=== PATIENT | female | born 1950 | race Caucasian/White ===

== ENCOUNTER 2017-07-22 08:50 | Observation (INO) | payer MEDICARE, SELFPAY ==
[2017-07-22 08:59] VITALS: BP 83/36; PULSE 88; RESP 16; O2SAT 98; BMI 19.5
[2017-07-22 09:12] LABS: Adenovirus F 40/41, stool Not Detected (NotDetected); Astrovirus Not Detected (NotDetected); Campylobacter Not Detected (NotDetected); Cryptosporidium Not Detected (NotDetected); Cyclospora Cayetanesis Not Detected (NotDetected); Entamoeba histolytica Not Detected (NotDetected); Enteroaggregative E coli Not Detected (NotDetected); Enteropathogenic E coli Not Detected (NotDetected); Enterotoxigenic E coli Not Detected (NotDetected); Giardia lamblia Not Detected (NotDetected); Norovirus Not Detected (NotDetected); Plesimonas Shigalloides, PCR Not Detected (NotDetected); Rotavirus A Not Detected (NotDetected); Salmonella, PCR Not Detected (NotDetected); Sapovirus Not Detected (NotDetected); Shiga-like toxin E coli Not Detected (NotDetected); Shigella Enterovasive E coli Not Detected (NotDetected); Vibrio Cholerae Not Detected (NotDetected); Vibrio, PCR Not Detected (NotDetected); Yersinia Entercolitica, PCR Not Detected (NotDetected)
[2017-07-22 09:28] LABS: Basophils % 0.2 % (0.1-2.0); Eosinophils % 0.4 % (0.1-12.0); Hematocrit 35.3 % (37.0-47.0); Hemoglobin 11.6 g/dL (12.2-16.2); Lymphocytes # 1.3 K/mm3 (0.7-4.5); Lymphocytes % 15.2 K/mm3 (10-50); Mean Corpuscular HGB Conc 32.8 g/dL (31.8-35.4); Mean Corpuscular Hemoglobin 30.4 pg (27.0-31.2); Mean Corpuscular Volume 92.5 fl (81-99); Mean Platelet Volume 7.8 fl (7.4-10.4); Monocytes # 0.9 K/mm3 (0.1-1.0); Monocytes % 11.2 % (1.7-9.3); Neutrophils # 6.1 K/mm3 (1.8-7.8); Platelet Count 285 K/mm3 (142-424); Red Blood Count 3.82 M/mm3 (4.20-5.40); Red Cell Distribution Width 12.6 % (11.5-17.5); White Blood Count 8.3 K/mm3 (4.8-10.8)
[2017-07-22 10:11] LABS: Lipase 111 u/L (73-393)
[2017-07-22 10:14] LABS: Alanine Aminotransferase 27 U/L (12-78); Albumin Level 2.8 gm/dL (3.4-5.0); Albumin/Globulin Ratio 0.9 (1.1-1.8); Alkaline Phosphatase 213 U/L (46-116); Amylase 29 U/L (25-125); Aspartate Amino Transferase 264 U/L (15-37); Bilirubin,Total 1.9 mg/dL (0.2-1.0); Blood Urea Nitrogen 29 mg/dL (7-18); Calcium 8.7 mg/dL (8.5-10.1); Carbon Dioxide 26 mmol/L (21.0-32.0); Chloride 106 mmol/L (98-107); Creatinine Clearance Estimated 40 mL/min (0-300); Creatinine,Serum 0.82 mg/dL (0.55-1.02); Estimated Glomerular Filt Rate 70 ml/min (>60); GFR (African American) 84 ML/MIN (>60); Globulin 3.2 gm/dl (1.3-3.2); Glucose 138 mg/dL (74-106); Sodium 139 mmol/L (136-145)
[2017-07-22 11:03] LABS: Clostridium Difficile A/B, PCR Detected (NotDetected)
--- NOTE | 2017-07-22 11:08 | HMH.EDNVD ---
ED Disposition Clinical Impression: Pseudomembranous colitis, Dehydration Hypotension Qualifiers: Hypotension type: unspecified hypotension type Qualified Code(s): I95.9 - Hypotension, unspecified Disposition: Admitted As Inpatient Condition on Discharge: Good Time of Disposition: 11:09 - Critical Care Critical Care Time: No Attestation: On 07/22/17, the high probability of a clinically significant, sudden or life threatening deterioration of the following system(s) required my full and direct attention, intervention and personal management. The time I documented below is in addition to time spent performing reported procedures but includes the following listed in this critical care notation. Medical Decision Making - Medical Records Medical records reviewed: Yes: I reviewed the patient's medical records. - Juan Inquiry Pt receiving controlled substance: No Vital Signs: 07/22/17 08:59 Pulse Rate [Right Brachial] 88 Respiratory Rate 16 Blood Pressure [Right Arm] 83/36 Blood Pressure Mean [Right Arm] 51 Blood Pressure Source [Right Arm] Automatic Cuff Blood Pressure Position [Right Arm] Sitting 02 Sat by Pulse Oximetry 98 Oxygen Delivery Method Room Air - Lab Data Lab results reviewed: Yes: I reviewed the patient's lab results. Lab Results 07/22/17 08:50: Stl Aeromonas (PCR) Not detected, Stl C. cayetanensis PCR Not detected, Stool Rotavirus (PCR) Not detected, Stl Adenov F 40/41 PCR Not detected, Stool Astrovirus (PCR) Not detected, Stool Campylobacter PCR Not detected, Stl C.difficile Tox PCR Detected A, Stool Cryptosporidium PCR Not detected, Stl E.coli Shiga Tox PCR Not detected, Stool E coli O157 PCR Not detected, Stl Enterotoxigenic E PCR Not detected, Stool EPEC (PCR) Not detected, Stool EAEC (PCR) Not detected, Stl E. histolytica PCR Not detected, Stool Giardia Lamblia PCR Not detected, Stool Salmonella PCR Not detected, Stool Sapovirus (PCR) Not detected, Stl P. shigelloides PCR Not detected, Stl Shigella/EIEC PCR Not detected, St Y.enterocolitica PCR Not detected, Stool Vibrio (PCR) Not detected, Stl Vibrio cholerae PCR Not detected, Stl Norovirus GI/GII PCR Not detected 07/22/17 09:40: Sodium 139, Potassium 4.0, Chloride 106, Carbon Dioxide 26, Anion Gap 11.0, BUN 29 H, Creatinine 0.82, Estimated Creat Clear 40, Estimated GFR 70, Est GFR ( Amer) 84, Glucose 138 H, Calcium 8.7, Total Bilirubin 1.9 H, AST 264 H, ALT 27, Alkaline Phosphatase 213 H, Total Protein 6.0 L, Albumin 2.8 L, Globulin 3.2, Albumin/Globulin Ratio 0.9 L, Amylase 29 07/22/17 09:40: Lipase 111 07/22/17 : WBC 8.3, RBC 3.82 L, Hgb 11.6 L, Hct 35.3 L, MCV 92.5, MCH 30.4, MCHC 32.8, RDW 12.6, Plt Count 285, MPV 7.8, Neut % (Auto) 73.0, Lymph % (Auto) 15.2, [place] % (Auto) 11.2 H, Eos % (Auto) 0.4, Baso % (Auto) 0.2, Neut # (Auto) 6.1, Lymph # (Auto) 1.3, [place] # (Auto) 0.9, Eos # (Auto) 0.0, Baso # (Auto) 0.0 Result diagrams: 07/22/17 Unknown 07/22/17 09:40 Orders (Tests/Meds): ED MEDICATIONS Generic Name Dose Route Start Last Admin Trade Name Freq PRN Reason Stop Dose Admin Metronidazole 100 mls @ 100 mls/hr 07/22/17 11:47 07/22/17 11:52 Flagyl 500mg/100ml Ivpb IV 07/22/17 12:46 100 mls/hr ONCE ONE Administration Protocol Discontinued Medications Generic Name Dose Route Start Last Admin Trade Name Freq PRN Reason Stop Dose Admin Sodium Chloride 1,000 mls @ 999 mls/hr 07/22/17 09:15 07/22/17 10:20 Sod Chlor 0.9% 1000ml Bag IV 07/22/17 10:15 999 mls/hr .Q1H1M YANA Administration Sodium Chloride 1,000 mls @ 999 mls/hr 07/22/17 09:15 07/22/17 11:51 Sod Chlor 0.9% 1000ml Bag IV 07/22/17 10:15 999 mls/hr .Q1H1M YANA Administration Metronidazole 500 mg 07/22/17 11:04 Metronidazole 500mg Tablet PO 07/22/17 11:05 ONCE ONE Protocol - Reevaluation(s) Time: 12:00 Reevaluation #1: Case d/w Dr Mcdaniel covering for DR Crum, advise of patient's present
[2017-07-22 12:23] VITALS: BP 113/64; PULSE 102; RESP 20; TEMP 36.4; O2SAT 98
--- NOTE | 2017-07-22 12:23 | PC.NURSE ---
report called to EFRAIN Piper on second floor at this time.
[2017-07-22 12:26] VITALS: BMI 21.1
--- NOTE | 2017-07-22 13:08 | HMH.HP ---
*Admission Date: 07/22/17 <Evelin Carlson 07/22/17 15:25> *Chief complaint: nausea/vomiting/diarrhea <Evelin Carlson 07/22/17 15:25> *History of present illness: Ms Odonnell is a 67-year-old female with a history of Parkinson's disease osteoporosis, diverticulosis,and lumbar compression fractures to presented to [facility] emergency room after experiencing diarrhea for greater than a week. Stools started as soft about 10 days ago and turned to liquid watery stools on 07/18/2017. She has several small stools per day and states her stomach feels like there is an there is a knot in it. She has not vomited but has been nauseated at times. Been retaining fluids. She denies any melena hematochezia or hematemesis. To note she had a deep brain stimulator placement on 06/01/2017 and has been on IV and p.o. antibiotics after this procedure. With evaluation in the emergency room she was felt to be dehydrated, had a low blood pressure, and stool was positive for clostridium difficile. She was admitted to the hospital for further evaluation and treatment. With this exam patient has been placed on IV Flagyl and IV fluids. She has continued to have diarrhea. She has been eating. Her stomach still feels like it has a knot in it. Blood pressure has improved <Evelin Carlson 07/22/17 15:25> [facility] History Medical History: Reports:: Osteoporosis Denies:: Atherosclerotic Heart Disease, Congestive Heart Failure, Chronic Obstructive Pulmonary Disease (COPD), Diabetes Mellitus Type 2, Gastroesophageal Reflux Disease(GERD) <Evelin Carlson 07/22/17 15:25> Comment: Parkinson's disease; osteoporosis; diverticulosis; tobacco addiction; lumbar compression fracture. <Evelin Carlson 07/22/17 15:25> Laterality Cases: Bilateral: Tonsillectomy <Evelin Carlson 07/22/17 15:25> Other Surgeries: Yes: Colonoscopy, Tubal Ligation <Evelin Carlson 07/22/17 15:25> Comment: 06/01/2017 placement of deep brain stimulator <Evelin Carlson 07/22/17 15:25> - *Social History Educational Level: Completed Graduate School <Evelin Carlson 07/22/17 15:25> Smoking Status: Former smoker <Evelni Carlson 07/22/17 15:25> Tobacco Type: cigarettes <Evelin Carlson 07/22/17 15:25> Alcohol Intake: never <Evelin Carlson 07/22/17 15:25> - Psychiatric History Expresses thoughts of harming self/others: None <Sheela Carlsonhy 07/22/17 15:25> Suicide Plan Description: No Plan <Evelin Carlson 07/22/17 15:25> *Family Hx:: Cancer, Diabetes, Hypertension <Evelin Carlson 07/22/17 15:25> Review of Systems - Constitutional Denies anorexia, Denies body ache(s), Denies fever(s), Denies headache(s) <Sheela Carlsonhy 07/22/17 15:25> - Eyes Denies change in vision <Sheela Carlsonhy 07/22/17 15:25> - ENT Denies ear pain, Denies sore throat <Sheela Carlsonhy 07/22/17 15:25> - *Cardiovascular Denies chest pain, Denies shortness of breath, Denies rapid, pounding, or irregular heartbeat, Denies fast heart rate <Sheela Carlsonhy 07/22/17 15:25> - *Respiratory Denies chest congestion, Denies cough, Denies shortness of breath <Sheela Carlsonhy 07/22/17 15:25> - *Gastrointestinal Reports abdominal pain, Reports change in bowel habits, Reports change in stools, Reports loose stools (Diarrhea), Reports nausea, Denies constipation, Denies cramping, Denies heartburn, Denies difficulty swallowing, Denies vomiting blood, Denies bright, red blood in stools, Denies black, tarry stools, Denies vomiting <Sheela Carlsonhy 07/22/17 15:25> - *Musculoskeletal Comments: Walks with a walker for stability <Sheela Carlsonhy 07/22/17 15:25> - *Neurologic Denies behavioral changes, Denies confusion, Denies headache(s) <Sheela Carlsonhy 07/22/17 15:25> Meds Home Medications Medication Instructions Recorded Confirmed Type Carbidopa/Levodopa [Carbidopa-Levo 1 each PO [facility] 07/22/17 07/22/17 History 25-100 mg Odt] Etodolac [Etodolac 400mg Tab] 400 mg PO BID 07/22/1707/22
[2017-07-22 13:26] VITALS: BP 126/80; PULSE 72; RESP 18; TEMP 36.6; O2SAT 99
[2017-07-22 13:49] VITALS: BP 107/59; PULSE 106; RESP 20; TEMP 36.7; O2SAT 96
--- NOTE | 2017-07-22 16:46 | PC.NURSE ---
SINCE ARRIVAL TO FLOOR PATIENT HAS DONE WELL. SHE HAS BEEN EDUCATED ON IMPORTANCE OF WASHING HANDS, AND CDIFF. HAS HAD SOME BMS ON FLOOR. NO COMPLAINTS OF PAIN. HAS RANG OUT NEEDED. ASSESSMENT WITHIN NORMAL LIMITS. VSS WILL CONTINUE TO MONITOR.
--- NOTE | 2017-07-22 19:17 | INFXCTL.NOTE ---
report given to marleny mcfadden
[2017-07-22 20:00] VITALS: BP 107/61; PULSE 101; RESP 20; TEMP 37.6; O2SAT 95
[2017-07-23 04:00] VITALS: BP 107/62; PULSE 78; RESP 18; TEMP 36.9; O2SAT 93
--- NOTE | 2017-07-23 04:26 | PC.NURSE ---
NO COMPLAINTS STATED. ABDOMEN NON DISTENDED, BOWEL SOUNDS HYPERACTIVE PER AUSCULTATION, ABDOMEN SOFT WITH MILD TENDERNESS NOTED PER PALPATION IN ALL QUADS. PT REPORTS LOOSE STOOLS X2. CONTACT PRECAUTIONS MAINTAINED T/O SHIFT. EDUCATION PROVIDED REGARDING PPE.
[2017-07-23 07:18] LABS: Basophils % 0.2 % (0.1-2.0); Eosinophils # 0.1 K/mm3 (0.0-0.4); Eosinophils % 1.1 % (0.1-12.0); Hematocrit 31.8 % (37.0-47.0); Lymphocytes # 1.2 K/mm3 (0.7-4.5); Mean Corpuscular HGB Conc 31.3 g/dL (31.8-35.4); Mean Corpuscular Volume 95.9 fl (81-99); Mean Platelet Volume 7.9 fl (7.4-10.4); Monocytes # 0.4 K/mm3 (0.1-1.0); Monocytes % 8.4 % (1.7-9.3); Neutrophils # 3.4 K/mm3 (1.8-7.8); Neutrophils % 67.2 % (37.0-80.0); Platelet Count 199 K/mm3 (142-424); Red Blood Count 3.31 M/mm3 (4.20-5.40); Red Cell Distribution Width 12.7 % (11.5-17.5)
[2017-07-23 07:19] LABS: Hemoglobin 9.9 g/dL (12.2-16.2)
--- NOTE | 2017-07-23 07:21 | HMH.PHAVTE ---
[facility] Pharmacy VTE Monitoring - Patient Demographics Admission date: 07/22/17 Report Date: 07/23/17 Time: 07:22 Allergies/Adverse Reactions: Patient Allergies cephalexin [From KEFLEX] Allergy (Unknown, Verified 07/22/17 09:03) STATES GIVES YEAST INFECTION Sulfa (Sulfonamide Antibiotics) [SULFA (SULFONAMIDE ANTIBIOTICS)] Allergy (Unknown, Verified 07/22/17 09:03) anxiety Height: 1.52 m Weight: 49.101 kg Patient Problems: Current Active Problems Pseudomembranous colitis (Acute) Dehydration (Acute) Hypotension (Acute) Parkinsons disease (Chronic) Osteoporosis (Chronic) - VTE Risk Labs: VTE Related Lab Results Hgb 9.9 g/dL (12.2-16.2) L D 07/23/17 06:30 Hct 31.8 % (37.0-47.0) L 07/23/17 06:30 Plt Count 199 K/mm3 (142-424) D 07/23/17 06:30 BUN 29 mg/dL (7-18) H 07/22/17 09:40 Creatinine 0.82 mg/dL (0.55-1.02) 07/22/17 09:40 Estimated Creat Clear 40 mL/min (0-300) 07/22/17 09:40 Was VTE Risk Assessment Performed: Yes VTE Score: 2 VTE Risk Level: Low Risk - Prophylaxis VTE Prophylaxis Ordered?: Yes Types of VTE Prophylaxis: TEDS Knee High Location of Applied Device: Bilateral Lower Extremeties - VTE Diagnosis Confirmed Treatment or plan recommended: Continue Current Treatment
[2017-07-23 07:23] LABS: Anion Gap 8.6 mEq/L (5-15); Blood Urea Nitrogen 17 mg/dL (7-18); Carbon Dioxide 25 mmol/L (21.0-32.0); Chloride 112 mmol/L (98-107); Creatinine Clearance Estimated 43 mL/min (0-300); Creatinine,Serum 0.66 mg/dL (0.55-1.02); Estimated Glomerular Filt Rate 90 ml/min (>60); GFR (African American) 108 ML/MIN (>60); Glucose 103 mg/dL (74-106); Potassium 3.6 mmoL/L (3.5-5.1); Sodium 142 mmol/L (136-145)
[2017-07-23 07:50] VITALS: BP 118/68; PULSE 99; RESP 20; TEMP 36.8; O2SAT 99
--- NOTE | 2017-07-23 08:19 | HMH.ACPN2 ---
<Twila Muhammad - Last Filed: 07/23/17 08:19> Internal Medicine - PN: Subj *Date: 07/23/17 *Time: 08:19 Interval history: Patient is still feeling weak today. She only had 3 diarrheal episodes during the night. She still has diffuse abdominal pain. Exam Vital signs and Labs for Last 24 Hours: Temp Pulse Resp BP Pulse Ox 98.2 F 99 H 20 118/68 99 07/23/17 07:50 07/23/17 07:50 07/23/17 07:50 07/23/17 07:50 07/23/17 07:50 Laboratory Results - last 24 hr 07/22/17 : WBC 8.3, RBC 3.82 L, Hgb 11.6 L, Hct 35.3 L, MCV 92.5, MCH 30.4, MCHC 32.8, RDW 12.6, Plt Count 285, MPV 7.8, Neut % (Auto) 73.0, Lymph % (Auto) 15.2, [place] % (Auto) 11.2 H, Eos % (Auto) 0.4, Baso % (Auto) 0.2, Neut # (Auto) 6.1, Lymph # (Auto) 1.3, [place] # (Auto) 0.9, Eos # (Auto) 0.0, Baso # (Auto) 0.0 07/23/17 06:30: WBC 5.0 D, RBC 3.31 L, Hgb 9.9 L D, Hct 31.8 L, MCV 95.9, MCH 30.0, MCHC 31.3 L, RDW 12.7, Plt Count 199 D, MPV 7.9, Neut % (Auto) 67.2, Lymph % (Auto) 23.0, [place] % (Auto) 8.4, Eos % (Auto) 1.1, Baso % (Auto) 0.2, Neut # (Auto) 3.4, Lymph # (Auto) 1.2, [place] # (Auto) 0.4, Eos # (Auto) 0.1, Baso # (Auto) 0.0 07/23/17 06:30: Sodium 142, Potassium 3.6, Chloride 112 H, Carbon Dioxide 25, Anion Gap 8.6, BUN 17 D, Creatinine 0.66, Estimated Creat Clear 43, Estimated GFR 90, Est GFR ( Amer) 108 D, Glucose 103 D I & O for Last 24 hours: Intake & Output 07/20/17 07/21/17 07/22/17 07/23/17 11:59 11:59 11:59 11:59 Intake Total 1944 / 2944 Output Total 200 / 200 Balance 1744 / 2744 Weight 108 lb 4 oz - Constitutional no acute distress - *Routine Respiratory Exam Present: CTA bilaterally - *Routine Cardiovascular Exam Present: RRR - *Routine Abdominal Exam Present: soft, normoactive bowel sounds, tenderness (diffuse) - *Routine Extremities Exam Absent: edema Assessment and Plan (1) Clostridium difficile colitis Current visit: Yes Status: Acute Category: Medical Code(s): A04.72 - Enterocolitis due to Clostridium difficile, not specified as recurrent (2) Pseudomembranous colitis Current visit: Yes Status: Acute Category: Medical Code(s): A04.72 - Enterocolitis due to Clostridium difficile, not specified as recurrent (3) Hypotension Current visit: Yes Status: Acute Qualifiers: Hypotension type: unspecified hypotension type Qualified Code(s): I95.9 - Hypotension, unspecified Category: Medical Code(s): I95.9 - Hypotension, unspecified (4) Dehydration Current visit: Yes Status: Acute Category: Medical Code(s): E86.0 - Dehydration (5) Parkinsons disease Current visit: Yes Status: Chronic Category: Medical Code(s): G20 - Parkinson's disease (6) Osteoporosis Current visit: Yes Status: Chronic Category: Medical Code(s): M81.0 - Age-related osteoporosis without current pathological fracture - Assessment and plan all Dx Assessment and Plan for all problems:: Will continue IVF hydration and switch to PO flagyl. Will recheck LFT's. <Mark Crum - Last Filed: 07/23/17 17:19> Internal Medicine - PN: Subj *Date: 07/23/17 *Time: 17:16 Exam Vital signs and Labs for Last 24 Hours: Temp Pulse Resp BP Pulse Ox 98.5 F 99 H 20 111/67 93 L 07/23/17 16:00 07/23/17 16:00 07/23/17 16:00 07/23/17 16:00 07/23/17 16:00 Laboratory Results - last 24 hr 07/23/17 06:30: WBC 5.0 D, RBC 3.31 L, Hgb 9.9 L D, Hct 31.8 L, MCV 95.9, MCH 30.0, MCHC 31.3 L, RDW 12.7, Plt Count 199 D, MPV 7.9, Neut % (Auto) 67.2, Lymph % (Auto) 23.0, [place] % (Auto) 8.4, Eos % (Auto) 1.1, Baso % (Auto) 0.2, Neut # (Auto) 3.4, Lymph # (Auto) 1.2, [place] # (Auto) 0.4, Eos # (Auto) 0.1, Baso # (Auto) 0.0 07/23/17 06:30: Sodium 142, Potassium 3.6, Chloride 112 H, Carbon Dioxide 25, Anion Gap 8.6, BUN 17 D, Creatinine 0.66, Estimated Creat Clear 43, Estimated GFR 90, Est GFR ( Amer) 108 D, Glucose 103 D 07/23/17 06:30: Total Bilirubin 0.9, Direct
--- NOTE | 2017-07-23 08:22 | P.PN_ITS ---
<Twila Muhammad - Last Filed: 07/23/17 08:19> Internal Medicine - PN: Subj *Date: 07/23/17 *Time: 08:19 Interval history: Patient is still feeling weak today. She only had 3 diarrheal episodes during the night. She still has diffuse abdominal pain. Exam Vital signs and Labs for Last 24 Hours: Temp Pulse Resp BP Pulse Ox 98.2 F 99 H 20 118/68 99 07/23/17 07:50 07/23/17 07:50 07/23/17 07:50 07/23/17 07:50 07/23/17 07:50 Laboratory Results - last 24 hr 07/22/17 : WBC 8.3, RBC 3.82 L, Hgb 11.6 L, Hct 35.3 L, MCV 92.5, MCH 30.4, MCHC 32.8, RDW 12.6, Plt Count 285, MPV 7.8, Neut % (Auto) 73.0, Lymph % (Auto) 15.2, [place] % (Auto) 11.2 H, Eos % (Auto) 0.4, Baso % (Auto) 0.2, Neut # (Auto) 6.1, Lymph # (Auto) 1.3, [place] # (Auto) 0.9, Eos # (Auto) 0.0, Baso # (Auto) 0.0 07/23/17 06:30: WBC 5.0 D, RBC 3.31 L, Hgb 9.9 L D, Hct 31.8 L, MCV 95.9, MCH 30.0, MCHC 31.3 L, RDW 12.7, Plt Count 199 D, MPV 7.9, Neut % (Auto) 67.2, Lymph % (Auto) 23.0, [place] % (Auto) 8.4, Eos % (Auto) 1.1, Baso % (Auto) 0.2, Neut # (Auto) 3.4, Lymph # (Auto) 1.2, [place] # (Auto) 0.4, Eos # (Auto) 0.1, Baso # (Auto) 0.0 07/23/17 06:30: Sodium 142, Potassium 3.6, Chloride 112 H, Carbon Dioxide 25, Anion Gap 8.6, BUN 17 D, Creatinine 0.66, Estimated Creat Clear 43, Estimated GFR 90, Est GFR ( Amer) 108 D, Glucose 103 D I & O for Last 24 hours: Intake & Output 07/20/17 07/21/17 07/22/17 07/23/17 11:59 11:59 11:59 11:59 Intake Total 1944 / 2944 Output Total 200 / 200 Balance 1744 / 2744 Weight 108 lb 4 oz - Constitutional no acute distress - *Routine Respiratory Exam Present: CTA bilaterally - *Routine Cardiovascular Exam Present: RRR - *Routine Abdominal Exam Present: soft, normoactive bowel sounds, tenderness (diffuse) - *Routine Extremities Exam Absent: edema Assessment and Plan (1) Clostridium difficile colitis Current visit: Yes Status: Acute Category: Medical Code(s): A04.72 - Enterocolitis due to Clostridium difficile, not specified as recurrent (2) Pseudomembranous colitis Current visit: Yes Status: Acute Category: Medical Code(s): A04.72 - Enterocolitis due to Clostridium difficile, not specified as recurrent (3) Hypotension Current visit: Yes Status: Acute Qualifiers: Hypotension type: unspecified hypotension type Qualified Code(s): I95.9 - Hypotension, unspecified Category: Medical Code(s): I95.9 - Hypotension, unspecified (4) Dehydration Current visit: Yes Status: Acute Category: Medical Code(s): E86.0 - Dehydration (5) Parkinsons disease Current visit: Yes Status: Chronic Category: Medical Code(s): G20 - Parkinson's disease (6) Osteoporosis Current visit: Yes Status: Chronic Category: Medical Code(s): M81.0 - Age- related osteoporosis without current pathological fracture - Assessment and plan all Dx Assessment and Plan for all problems:: Will continue IVF hydration and switch to PO flagyl. Will recheck LFT's. <Mark Crum - Last Filed: 07/23/17 17:19> Internal Medicine - PN: Subj *Date: 07/23/17 *Time: 17:16 Exam Vital signs and Labs for Last 24 Hours: Temp Pulse Resp BP Pulse Ox 98.5 F 99 H 20 111/67 93 L 07/23/17 16:00 07/23/17 16:00 07/23/17 16:00 07/23/17 16:00 07/23/17 16:00 Laboratory Results - last 24 hr 07/23/17 06:
[2017-07-23 08:33] LABS: Alanine Aminotransferase 27 U/L (12-78); Albumin Level 2.1 gm/dL (3.4-5.0); Alkaline Phosphatase 146 U/L (46-116); Aspartate Amino Transferase 64 U/L (15-37); Bilirubin,Direct 0.3 mg/dL (0.0-0.2); Bilirubin,Total 0.9 mg/dL (0.2-1.0)
--- NOTE | 2017-07-23 10:52 | HMH.PTEV ---
Physical Therapy Evaluation Rehab PT IP Evaluation Start: 07/23/17 10:23 Freq: .once Status: Active Protocol: Document 07/23/17 10:48 [email or web address] (Rec: 07/23/17 10:51 [email or web address] [id number]) Subjective/History History History This is the initial Physical THerapy evaluation for Criselda Odonnell. Pt is a 67 y/o female admitted to [facility] for c-diff Subjective Subjective pt reports weakness Rehab PT IP Eval Objective Appearance Patient Behavior Appropriate Cooperative Patient Orientation Person Place Time Name Birthday Year Patient Baseline Situation Difficulty following instructions none Speech Pattern Clear Soft-Spoken Ambulation Patient Able to Ambulate Yes Ambulation Observation IP General Gait Pattern Observation Narrow Based Gait Ambulation Distance (feet) 15 Ambulation Assistive Device Rolling Walker Balance Ability to Arise Able, uses arms to help Sitting Balance Steady, safe Standing Balance Steady, wide stance Dynamic Sitting Balance Ability Good Dynamic Standing Balance Ability Fair Transfers Bed Transfer Ability Contact Guard/Hand Hold Chair Transfer Ability Contact Guard/Hand Hold Sit to Stand Bed Transfer Ability Contact Guard/Hand Hold Sit to Stand Chair Transfer Ability Contact Guard/Hand Hold ROM All Extremities PT ROM Status WFL MMT All Extremities PT MMT WFL Rehab PT IP prob,goals,plan Problems Date of Evaluation: 07/23/17 PT IP Problems Transfers Gait Safety Rehab Potential Rehab Potential Good Equipment Needs Assistive Devices Rolling / Wheeled Walker Plan PT Intervention Plan Transfers Gait Safety Therapeutic Exercise PT Plan Frequency BID Duration LOS Discharge Goals Bed Transfer Ability Contact Guard/Hand Hold Sit to Stand Chair Transfer Ability Contact Guard/Hand Hold Ambulation Assistive Device Rolling Walker Ambulation Distance (feet) 20 Discharge Plan PT Discharge Plan pt to need st rehab to allow
--- NOTE | 2017-07-23 13:08 | SW/DCPLANNER ---
Addendum entered by Veronique Ngo 07/23/17 15:49: Angella from [facility] has now stated that this patient will require a precert. Precert has now been started for this patient. Original Note: Addendum entered by Veronique Ngo 07/23/17 15:13: Patient has been accepted to [facility] in [place]....per Angella days 1-20 will be covered at 100% by insurance and days 21-100 with cost patient $30 per day. Both patient and family agrees with this plan. Original Note: Received referral regarding short term care for this patient. I have spoke with patients two daughters (Violeta and Dwayne) stating they prefer this patient to go to [facility] for short term therapy. Patient information has been faxed to Angella at [facility] regarding a bed for [facility]....Angella is coming to [facility] this afternoon to speak with family.
[2017-07-23 16:00] VITALS: BP 111/67; PULSE 99; RESP 20; TEMP 36.9; O2SAT 93
--- NOTE | 2017-07-23 17:17 | PC.NURSE ---
67 YEAR OLD FEMALE ADMITTED TO THE HOSPITAL WITH A DIAGNOSIS OF C-DIFF AND HYPOTENSION. SHE HAS DONE WELL TODAY WITH A DECREASE IN THE AMOUNT OF LOOSE STOOLS. SHE DENIES NAUSEA OR VOMITING. ABDOMINAL ASSESSMENT REVEALS ABDOMEN IS TENDER TO TOUCH. LR AT 100 ML AN HOUR HAS BEEN ORDERED ALONG WITH ANTIBIOTICS AND A PROBIOTIC. LUNGS ARE CTA. SKIN IS CLEAN DRY AND INTACT. SHE HAS A HISTORY OF PARKINSONS DISEASE AND THERAPY HAS WALKED WITH HER TODAY. SHE USES A WALKER FOR AMBULATION. FAMILY HAS BEEN AT BEDSIDE MOST OF THE DAY. SHE STATES SHE IS RESTING WELL WITH NO COMPLAINTS AT THIS TIME. WILL CONTINUE TO MONITOR. KETTY REBOLLAR, MSN, RN
[2017-07-23 19:36] VITALS: BP 113/64; PULSE 101; RESP 20; TEMP 36.9; O2SAT 95
[2017-07-24 04:00] VITALS: BP 118/59; PULSE 85; RESP 20; TEMP 36.9; O2SAT 93
--- NOTE | 2017-07-24 04:20 | PC.NURSE ---
ABDOMEN NON DISTENDED, HYPERACTIVE BS NOTED IN ALL QUADS, SOFT WITH MILD TENDERNESS IN ALL QUADS WITH PALPATION. NO COMPLAINTS STATED. NO STOOLS NOTED THIS SHIFT. CONTACT PRECAUTIONS MAINTAINED THIS SHIFT. VSS. WILL CONTINUE TO MONITOR.
[2017-07-24 08:00] VITALS: BP 131/65; PULSE 95; RESP 18; TEMP 36.7; O2SAT 97
--- NOTE | 2017-07-24 08:13 | HMH.ACPN2 ---
<Twila Muhammad - Last Filed: 07/24/17 08:13> Internal Medicine - PN: Subj *Date: 07/24/17 *Time: 08:13 Interval history: She states she feels better today. Slept 4 hours last night which is more than she has been sleeping. Tolerated her diet. Only a few episodes of diarrhea. Her abdominal pain has improved. Exam Vital signs and Labs for Last 24 Hours: Temp Pulse Resp BP Pulse Ox 98.1 F 95 H 18 131/65 97 07/24/17 08:00 07/24/17 08:00 07/24/17 08:00 07/24/17 08:00 07/24/17 08:00 Laboratory Results - last 24 hr 07/23/17 06:30: Total Bilirubin 0.9, Direct Bilirubin 0.3 H, AST 64 H D, ALT 27, Alkaline Phosphatase 146 H, Total Protein 5.0 L, Albumin 2.1 L D I & O for Last 24 hours: Intake & Output 07/21/17 07/22/17 07/23/17 07/24/17 11:59 11:59 11:59 11:59 Intake Total 1944 / 2944 2085 / 2085 Output Total 200 / 200 500 / 500 Balance 1744 / 2744 1585 / 1585 Weight 108 lb 4 oz - Constitutional no acute distress - *Routine Respiratory Exam Present: CTA bilaterally - *Routine Cardiovascular Exam Present: RRR - *Routine Abdominal Exam Present: soft, normoactive bowel sounds, tenderness (LLQ) - *Routine Extremities Exam Absent: edema Assessment and Plan (1) Clostridium difficile colitis Current visit: Yes Status: Acute Category: Medical Code(s): A04.72 - Enterocolitis due to Clostridium difficile, not specified as recurrent (2) Pseudomembranous colitis Current visit: Yes Status: Acute Category: Medical Code(s): A04.72 - Enterocolitis due to Clostridium difficile, not specified as recurrent (3) Hypotension Current visit: Yes Status: Acute Qualifiers: Hypotension type: unspecified hypotension type Qualified Code(s): I95.9 - Hypotension, unspecified Category: Medical Code(s): I95.9 - Hypotension, unspecified (4) Dehydration Current visit: Yes Status: Acute Category: Medical Code(s): E86.0 - Dehydration (5) Parkinsons disease Current visit: Yes Status: Chronic Category: Medical Code(s): G20 - Parkinson's disease (6) Osteoporosis Current visit: Yes Status: Chronic Category: Medical Code(s): M81.0 - Age-related osteoporosis without current pathological fracture - Assessment and plan all Dx Assessment and Plan for all problems:: Patient is doing much better today. Possible discharge to the [facility]. <Mark Crum - Last Filed: 07/24/17 08:36> Internal Medicine - PN: Subj *Date: 07/24/17 *Time: 08:34 Exam Vital signs and Labs for Last 24 Hours: Temp Pulse Resp BP Pulse Ox 98.1 F 95 H 18 131/65 97 07/24/17 08:00 07/24/17 08:00 07/24/17 08:00 07/24/17 08:00 07/24/17 08:00 Laboratory Results - last 24 hr 07/23/17 06:30: Total Bilirubin 0.9, Direct Bilirubin 0.3 H, AST 64 H D, ALT 27, Alkaline Phosphatase 146 H, Total Protein 5.0 L, Albumin 2.1 L D I & O for Last 24 hours: Intake & Output 07/21/17 07/22/17 07/23/17 07/24/17 11:59 11:59 11:59 11:59 Intake Total 1944 / 2944 2085 / 2085 Output Total 200 / 200 500 / 500 Balance 1744 / 2744 1585 / 1585 Weight 108 lb 4 oz Assessment and Plan (1) Clostridium difficile colitis Current visit: Yes Status: Acute Category: Medical Code(s): A04.72 - Enterocolitis due to Clostridium difficile, not specified as recurrent (2) Pseudomembranous colitis Current visit: Yes Status: Acute Category: Medical Code(s): A04.72 - Enterocolitis due to Clostridium difficile, not specified as recurrent (3) Hypotension Current visit: Yes Status: Acute Qualifiers: Hypotension type: unspecified hypotension type Qualified Code(s): I95.9 - Hypotension, unspecified Category: Medical Code(s): I95.9 - Hypotension, unspecified (4) Dehydration Current visit: Yes Status: Acute Category: Medical Code(s): E86.0 - Dehydration (5) Parkinsons disease Current visit: Yes Status: Chronic
--- NOTE | 2017-07-24 08:47 | HMH.DCSUM ---
General - General Admission date: 07/22/17 <SabinaTwila - 07/24/17 08:54> Discharge date: 07/24/17 <SabinaTwila - 07/24/17 08:54> HPI HPI: Ms Odonnell is a 67-year-old female with a history of Parkinson's disease osteoporosis, diverticulosis,and lumbar compression fractures who presented to [facility] emergency room after experiencing diarrhea for greater than a week. Stools started as soft about 10 days ago and turned to liquid watery stools on 07/18/2017. She has several small stools per day and states her stomach feels like there is a knot in it. She has not vomited but has been nauseated at times. She has been retaining fluids. She denies any melena, hematochezia, or hematemesis. To note she had a deep brain stimulator placement on 06/01/2017 and has been on IV and p.o. antibiotics after this procedure. With evaluation in the emergency room she was felt to be dehydrated, had a low blood pressure, and stool was positive for clostridium difficile. She was admitted to the hospital for further evaluation and treatment. <Twila Muhammad - 07/24/17 08:54> Hospital Course Hospital Course: She was initially placed on IV Flagyl and IV fluids. Her blood pressure improved and her diarrhea decreased. She was able to tolerate a diet. She was switched to PO flagyl. Her LFT's improved. Her abdominal pain improved. Her family was concerned with her being alone at home and not able to care for herself related to this acute episode exacerbating her chronic debilitation from Parkinsons and recent surgery. It was felt she would benefit from short term rehab for PT and OT. A bed was found for her at the [facility] and she was stable to be discharged. <Twila Muhammad - 07/24/17 08:54> Objective Vital signs: Temp Pulse Resp BP Pulse Ox 98.1 F 95 H 18 131/65 97 07/24/17 08:00 07/24/17 08:00 07/24/17 08:00 07/24/17 08:00 07/24/17 08:00 <Mark Crum - 07/24/17 09:05> Temp Pulse Resp BP Pulse Ox 98.1 F 95 H 18 131/65 97 07/24/17 08:00 07/24/17 08:00 07/24/17 08:00 07/24/17 08:00 07/24/17 08:00 <SabinaTwila - 07/24/17 08:54> Narrative: - Constitutional no acute distress, thin - *Routine HEENT Exam Head: Present: normocephalic, atraumatic Eye: Present: PERRL. Absent: conjunctival icterus, scleral injection ENT: Present: mucous membranes moist, oropharynx clear, nares patent - *Routine Neck Exam Present: full ROM. Absent: carotid bruit, lymphadenopathy, thyromegaly, tenderness - *Routine Respiratory Exam Present: CTA bilaterally (Anteriorly and posteriorly). Absent: accessory muscle use, wheezes, crackles - *Routine Cardiovascular Exam Present: RRR - *Routine Abdominal Exam Present: soft. Absent: tenderness, distended Comments: Hyperactive bowel sounds - *Routine Extremities Exam Absent: edema, calf tenderness - *Routine Neurological Exam Present: alert, oriented X3 <Twila Muhammad - 07/24/17 08:54> DS: Diagnosis - Discharge Diagnosis (1) Clostridium difficile colitis Status: Acute (2) Pseudomembranous colitis Status: Acute (3) Hypotension Status: Acute (4) Dehydration Status: Acute (5) Parkinsons disease Status: Chronic (6) Osteoporosis Status: Chronic <Twila Muhammad - 07/24/17 09:00> (1) Clostridium difficile colitis Status: Acute (2) Pseudomembranous colitis Status: Acute (3) Hypotension Status: Acute (4) Dehydration Status: Acute (5) Parkinsons disease Status: Chronic (6) Osteoporosis Status: Chronic <Mark Crum - 07/24/17 09:05> Discharge Plan - Follow up Plan Follow up with: Mark Crum MD [Primary Care Provider] - 2 weeks <Mark Crum - 07/24/17 09:05> Disposition: Xfer SNF <Mark Crum - 07/24/17 09:05> Home Medications: Home Medications Medication Instr
--- NOTE | 2017-07-24 08:50 | P.DS_ITS ---
General - General Admission date: 07/22/17 <SabinaTwila - 07/24/17 08:54> Discharge date: 07/24/17 <SabinaTwila - 07/24/17 08:54> HPI HPI: Ms Odonnell is a 67-year-old female with a history of Parkinson's disease osteoporosis, diverticulosis,and lumbar compression fractures who presented to [facility] emergency room after experiencing diarrhea for greater than a week. Stools started as soft about 10 days ago and turned to liquid watery stools on 07/18/2017. She has several small stools per day and states her stomach feels like there is a knot in it. She has not vomited but has been nauseated at times. She has been retaining fluids. She denies any melena, hematochezia, or hematemesis. To note she had a deep brain stimulator placement on 06/01/2017 and has been on IV and p.o. antibiotics after this procedure. With evaluation in the emergency room she was felt to be dehydrated, had a low blood pressure, and stool was positive for clostridium difficile. She was admitted to the hospital for further evaluation and treatment. <Twila Muhammad - 07/24/17 08:54> Hospital Course Hospital Course: She was initially placed on IV Flagyl and IV fluids. Her blood pressure improved and her diarrhea decreased. She was able to tolerate a diet. She was switched to PO flagyl. Her LFT's improved. Her abdominal pain improved. Her family was concerned with her being alone at home and not able to care for herself related to this acute episode exacerbating her chronic debilitation from Parkinsons and recent surgery. It was felt she would benefit from short term rehab for PT and OT. A bed was found for her at the [facility] and she was stable to be discharged. <Twila Muhammad - 07/24/17 08:54> Objective Vital signs: Temp Pulse Resp BP Pulse Ox 98.1 F 95 H 18 131/65 97 07/24/17 08:00 07/24/17 08:00 07/24/17 08:00 07/24/17 08:00 07/24/17 08:00 <Mark Crum - 07/24/17 09:05> Temp Pulse Resp BP Pulse Ox 98.1 F 95 H 18 131/65 97 07/24/17 08:00 07/24/17 08:00 07/24/17 08:00 07/24/17 08:00 07/24/17 08:00 <Twila Muhammad - 07/24/17 08:54> Narrative: - Constitutional no acute distress, thin - *Routine HEENT Exam Head: Present: normocephalic, atraumatic Eye: Present: PERRL. Absent: conjunctival icterus, scleral injection ENT: Present: mucous membranes moist, oropharynx clear, nares patent - *Routine Neck Exam Present: full ROM. Absent: carotid bruit, lymphadenopathy, thyromegaly, tenderness - *Routine Respiratory Exam Present: CTA bilaterally (Anteriorly and posteriorly). Absent: accessory muscle use, wheezes, crackles - *Routine Cardiovascular Exam Present: RRR - *Routine Abdominal Exam Present: soft. Absent: tenderness, distended Comments: Hyperactive bowel sounds - *Routine Extremities Exam Absent: edema, calf tenderness - *Routine Neurological Exam Present: alert, oriented X3 <Twila Muhammad - 07/24/17 08:54> DS: Diagnosis - Discharge Diagnosis (1) Clostridium difficile colitis Status: Acute (2) Pseudomembranous colitis Status: Acute (3) Hypotension Status: Acute (4) Dehydration Status: Acute (5) Parkinsons disease Status: Chronic (6) Osteoporosis Status: Chronic <Twila Muhammad - 07/24/17 09:00> (1) Clostridium difficile colitis Status: Acute (2) Pseu
== END 2017-07-24 10:55 | DRG 373 ==
LOC: ER 12:06 → 2ND 12:26
PROVIDERS: Admitting Provider Family Medicine; Emergency Provider Emergency Medicine; Family Provider Family Medicine; PCP Family Medicine; Visit Provider Family Medicine
DX: A04.72 Enterocolitis due to Clostridium difficile, not specified as recurrent (principal); E86.0 Dehydration; I95.9 Hypotension, unspecified; G20 Parkinson's disease; M81.0 Age-related osteoporosis without current pathological fracture; Z72.0 Tobacco use; Z96.89 Presence of other specified functional implants; A04.8 Other specified bacterial intestinal infections; Z23 Encounter for immunization
CPT/HCPCS: 36415; 80048; 80053; 80076; 82150; 83690; 85025; 87507; 90732; 96365; 96366; 96367; 97116; 97162; 99284; G0378

== ENCOUNTER → 2018-06-29 08:47 | Outpatient (CLI) | payer MEDICARE, SELFPAY ==
--- NOTE | 2018-06-29 08:51 | XR_ITS ---
XR DEXA axial skeleton HISTORY: ITS.REASON: OSTEOPOROSIS ORDERING PHYSICIAN: Mark Crum MD PATIENT AGE: 68 years COMPARISON: 02/11/2016 FINDINGS: The BMD measured at the Right femoral neck is 0.528 g/cm squared with a T score of -3.7. This is considered Osteoporotic according to the World Health Organization criteria. Fracture risk is High. Treatment suggested. The L1 L4 density has a T score of -1.5 and has decreased by 12%. The hip density has decreased by 17%. IMPRESSION: Osteoporosis with high fracture risk with decrease in bony density compared to the previous study. Treatment recommended. Suggest follow-up exam June 2019
--- NOTE | 2018-06-29 08:51 | MM_ITS ---
MM Dig screening mamm BI w/CAD CAD Screening COMPARISON: Digital mammograms with CAD 02/11/2016 INDICATION: There is a history of breast cancer in patient's maternal aunt diagnosed before menopause TECHNIQUE: Standard CC and MLO images were obtained. R2 CAD reviewed. FINDINGS: Prominent diffuse somewhat heterogenic fibroglandular densities are seen in the central portions of both breasts. There is a cardiac device likely a pacemaker projecting over the axillary tail of the right breast. There is no suspicious lesion and there are no suspicious microcalcifications. IMPRESSION: 50 dense parenchymal pattern with no suspicious lesion seen BI-RADS Category: 2 Benign Finding(s) RECOMMENDED FOLLOW-UP: 1YR - 1 YEAR FOLLOW-UP (A letter has been sent to the patient regarding results of the study.)
== END ==
PROVIDERS: PCP Family Medicine; Visit Provider Family Medicine
DX: Z12.31 Encounter for screening mammogram for malignant neoplasm of breast (principal); M81.0 Age-related osteoporosis without current pathological fracture
CPT/HCPCS: 77067; 77080

== ENCOUNTER 2019-09-03 12:05 | Inpatient (IN) | payer MEDICARE, SELFPAY ==
[2019-09-03] VITALS (7 sets, daily range): BP systolic 90–135; BP diastolic 57–82; PULSE 68–104; RESP 16–18; TEMP 36.5–36.7; O2SAT 91–98; BMI 17.7; BMI 21.7
--- NOTE | 2019-09-03 12:19 | XR_ITS ---
PROCEDURE: XR HIP LT 2-3V W/PELVIS CLINICAL INDICATION: fall Left hip pain COMPARISON: No exams were available for comparison FINDINGS: There is an intertrochanteric fracture left hip with mild coxa vera angulation. The femoral head remains within the acetabulum. The right hip is intact. The iliac bones and pubic bones appear intact. There is a large amount stool in the rectum. IMPRESSION: Intertrochanteric fracture left hip Dictated by: Dr. Tom Parra MD 09/03/2019 13:[address] Tom Parra MD in [facility] 09/03/2019 13:12
[2019-09-03 12:26] LABS: Appearance,Urine CLEAR (Clear); Blood, Urine Negative (Negative); Color,Urine YELLOW (Yellow); Glucose,Urine (UA) Negative (Negative); Ketones,Urine TRACE (Negative); Leukocyte Esterase,Urine TRACE (Negative); Nitrate,Urine Negative (Negative); Protein,Urine Negative (Negative); Specific Gravity, Urine >= 1.030 (1.005-1.030); Urobilinogen,Urine 0.2 EU/dl (0.2)
[2019-09-03 12:28] LABS: Microscopic, Urine URINE MICROSCOPIC (MICROSCOPIC)
[2019-09-03 12:29] LABS: Basophils % 0.3 % (0.1-2.0); Bilirubin,Urine 3+ (Negative); Eosinophils % 0.5 % (0.1-12.0); Hematocrit 38.3 % (37.0-47.0); Hemoglobin 11.9 g/dL (12.2-16.2); Lymphocytes # 2.3 K/mm3 (0.7-4.5); Lymphocytes % 28.8 % (10-50); Mean Corpuscular HGB Conc 31.2 g/dL (31.8-35.4); Mean Corpuscular Hemoglobin 30.7 pg (27.0-31.2); Mean Corpuscular Volume 98.6 fl (81-99); Mean Platelet Volume 7.5 fl (7.4-10.4); Monocytes # 0.4 K/mm3 (0.1-1.0); Monocytes % 5.5 % (1.7-9.3); Neutrophils # 5.1 K/mm3 (1.8-7.8); Neutrophils % 64.9 % (37.0-80.0); Platelet Count 336 K/mm3 (142-424); Red Blood Count 3.88 M/mm3 (4.20-5.40); Red Cell Distribution Width 13.4 % (11.5-17.5); White Blood Count 7.9 K/mm3 (4.8-10.8)
[2019-09-03 12:33] LABS: Bacteria,Urine 4+ /lpf; Squamous Epithelial Cell,Urine Occasional #/hpf (0-5); Transitional Epi Cells,Urine OCC #/lpf (0-3); WBC,Urine 20-50 #/hpf (0-3)
[2019-09-03 12:37] LABS: Alanine Aminotransferase 8 U/L (12-78); Albumin Level 4.3 g/dl (3.5-5.0); Albumin/Globulin Ratio 1.5 (1.1-1.8); Alkaline Phosphatase 60 U/L (38-126); Anion Gap 9.2 mEq/L (5-15); Aspartate Amino Transferase 23 U/L (14-36); Bilirubin,Total 1.2 mg/dl (0.2-1.3); Blood Urea Nitrogen 29 mg/dl (7-17); Calcium 9.4 mg/dl (8.4-10.2); Carbon Dioxide 27 mmol/L (22.0-30.0); Chloride 107 mmol/L (98-107); Creatinine Clearance Estimated 42 mL/min (50-200); Estimated Glomerular Filt Rate 71 ml/min (>60); GFR (African American) 86 ML/MIN (>60); Globulin 2.8 g/dL (1.3-3.2); Glucose 115 mg/dl (74-100); Potassium 4.2 mmoL/L (3.5-5.1); Sodium 139 mmol/L (136-145); Total Protein,Serum 7.1 g/dl (6.3-8.2)
--- NOTE | 2019-09-03 12:38 | PC.NURSE ---
Pt with rad.
--- NOTE | 2019-09-03 12:40 | PC.NURSE ---
pt c/o lt hip pain, lt leg shortened and externally rotated. pedal pulses strong. pt with hx of parkinson's dz.
--- NOTE | 2019-09-03 13:07 | CT_ITS ---
PROCEDURE: CT HIP LT WO CON CLINICAL HISTORY: fall COMPARISON: No exams were available for comparison TECHNIQUE: Axial images obtained with sagittal and coronal reformats. All CT scans at the facility use one or more dose reduction, viz: automated exposure control, ma/kV adjustment per patient size (including targeted exams where dose is matched to indication, i.e. head), or iterative reconstruction technique. FINDINGS: There is a somewhat complex intertrochanteric fracture with coxa vera angulation of the fracture components. On the sagittal images there is anterior angulation of the femoral neck in relationship to the femoral shaft. There is a large fracture fragment of the lesser trochanter only minimally displaced from the proximal femoral shaft. The acetabulum appears intact and the femoral head is intact. IMPRESSION: Complex intertrochanteric fracture with anterior angulation of the femoral neck Dictated by: Dr. Tom Parra MD 09/03/2019 14:[address] Tom Parra MD in [facility] 09/03/2019 14:30
--- NOTE | 2019-09-03 13:14 | PC.NURSE ---
pt returned to rad.
--- NOTE | 2019-09-03 13:54 | PC.NURSE ---
CLARK GONZÁLES speaking with Dr. Florian
--- NOTE | 2019-09-03 14:02 | PC.NURSE ---
CLARK GONZÁLES speaking with Dr. Lilly who is investigations manager for Dr. Crum
--- NOTE | 2019-09-03 14:05 | PC.NURSE ---
contacting housekeeping director for bed assignment, waiting compressor stations superintendent back
--- NOTE | 2019-09-03 14:08 | PC.NURSE ---
pt assigned to room 214 per housekeeping supervisor hotel registration staff notified of pt admission information, spoke with kacey
--- NOTE | 2019-09-03 14:10 | PC.NURSE ---
spoke with daughter, Violeta Ferreira and informed of pt's admission and possible surgery tomorrow
--- NOTE | 2019-09-03 14:37 | HMH.EDFALL ---
ED Disposition Clinical Impression: Hip fracture, left Disposition: Admitted as Observation Condition on Discharge: Good - Critical Care Critical Care Time: No Attestation: On 09/03/19, the high probability of a clinically significant, sudden or life threatening deterioration of the following system(s) required my full and direct attention, intervention and personal management. The time I documented below is in addition to time spent performing reported procedures but includes the following listed in this critical care notation. Medical Decision Making - Medical Records Medical records reviewed: Yes: I reviewed the patient's medical records. - Juan Inquiry Pt receiving controlled substance: No Vital Signs: 09/03/19 12:10 09/03/19 12:21 Temperature 98 F Temperature Source Oral Pulse Rate [Left Radial] 94 H 85 Respiratory Rate 16 Blood Pressure [Right Arm] 132/82 130/70 Blood Pressure Mean [Right Arm] 98 90 Blood Pressure Source [Right Arm] Automatic Cuff Blood Pressure Position [Right Arm] Sitting Sitting 02 Sat by Pulse Oximetry 98 96 Oxygen Delivery Method Room Air Room Air - Lab Data Lab results reviewed: Yes: I reviewed the patient's lab results. Lab Results 09/03/19 12:25: WBC 7.9, RBC 3.88 L, Hgb 11.9 L, Hct 38.3, MCV 98.6, MCH 30.7, MCHC 31.2 L, RDW 13.4, Plt Count 336, MPV 7.5, Neut % (Auto) 64.9, Lymph % (Auto) 28.8, [place] % (Auto) 5.5, Eos % (Auto) 0.5, Baso % (Auto) 0.3, Neut # (Auto) 5.1, Lymph # (Auto) 2.3, [place] # (Auto) 0.4, Eos # (Auto) 0.0, Baso # (Auto) 0.0 09/03/19 12:25: Sodium 139, Potassium 4.2, Chloride 107, Carbon Dioxide 27, Anion Gap 9.2, BUN 29 H, Creatinine 0.80, Estimated Creat Clear 42, Estimated GFR 71, Est GFR ( Amer) 86, Glucose 115 H, Calcium 9.4, Total Bilirubin 1.2, AST 23, ALT 8 L, Alkaline Phosphatase 60, Total Protein 7.1, Albumin 4.3, Globulin 2.8, Albumin/Globulin Ratio 1.5 09/03/19 12:25: Urine Color Yellow, Urine Appearance Clear, Urine pH 6.0, Ur Specific [place] >= 1.030, Urine Protein Negative, Urine Glucose (UA) Negative, Urine Ketones Trace, Urine Blood Negative, Urine Nitrate Negative, Urine Bilirubin 3+ A, Urine Urobilinogen 0.2, Ur Leukocyte Esterase Trace, Urine RBC 5-10, Urine WBC 20-50, Ur Squamous Epith Cells Occasional, Ur Transition Epith Cell Occ, Urine Bacteria 4+ Result diagrams: 09/03/19 12:25 09/03/19 12:25 Orders (Tests/Meds): ED MEDICATIONS Generic Name Dose Route Start Last Admin Trade Name Freq PRN Reason Stop Dose Admin Sodium Chloride 1,000 mls @ 999 mls/hr 09/03/19 12:30 09/03/19 12:22 Sod Chlor 0.9% 1000ml Bag IV 09/03/19 13:30 999 mls/hr .[id number] YANA Administration Discontinued Medications Generic Name Dose Route Start Last Admin Trade Name Freq PRN Reason Stop Dose Admin Hydromorphone HCl 0.5 mg 09/03/19 13:24 09/03/19 13:15 Dilaudid 2mg/Ml Syringe IV 09/03/19 13:25 0.5 mg ONCE ONE Administration Morphine Sulfate 4 mg 09/03/19 12:20 09/03/19 12:21 Morphine 4mg/Ml Syringe IV 09/03/19 12:21 4 mg ONCE ONE Administration Ondansetron HCl 4 mg 09/03/19 12:21 09/03/19 12:22 Zofran 4mg/2ml Vial IV 09/03/19 12:22 4 mg ONCE ONE Administration ORDERS Category Date Time Status Urine Culture Stat Micro 09/03/19 12:25 Received - Radiology Data #1 Image(s): Hip Image Reviewed: Yes I reviewed the patient's radiology image w/the ED provider Preliminary Findings: Abnormal (Left hip fracture) Medical Decision Narrative: I spoke to Dr. Luna to consult on this patient I spoke to Dr. Lilly for admission. Fall HPI - General Chief Complaint: PAIN Stated Complaint: Hip pain from a fall Time Seen by Provider: 09/03/19 14:00 Mode of Arrival: EMS Source of Information: Patient Limitations: No Limitations Description of Symptoms (Recalled from ER Triage Doc. by RN): to ed per squad pt states fell out of bed injuring lt hip. pt was unable to get off floor.
--- NOTE | 2019-09-03 14:50 | PC.NURSE ---
report called to floor
--- NOTE | 2019-09-03 17:59 | HMH.ORTHHP ---
*Admission Date: 09/03/19 *Reason for consult:: L hip fracture *History of present illness: 69yo F admitted this afternoon through the ED after acute onset left hip pain from a fall sustained at home this morning. She lives with her daughter and grandchildren, who were at home at the time of the injury. The patient was in the kitchen and walked to the refrigerator, catching her foot on the carpet and falling on the left side of the body. She typically ambulates with a walker. Pain is currently rated as a 4 out of 10, sharp in nature and localized to the left hip. She does not believe she lost consciousness during the fall. She has an underlying history of Parkinson's disease and says that she typically aches all over at baseline. She had a deep brain stimulator placed in September 2018 and after this procedure she developed C. difficile colitis, requiring a 6-week stay in a residential facility. I spoke via telephone with her daughter Violeta this evening, who accepts the patient's power of criminal attorney. She says that her mother's Parkinson's has advanced very significantly in the last 3 years and that her quality of life has declined. She does not take any anticoagulants. The patient denies chest pain or shortness of breath at baseline. [facility] History I have reviewed the patient's past medical history: Yes Medical History: Reports:: Osteoporosis Denies:: Atherosclerotic Heart Disease, Cancer, Congestive Heart Failure, Chronic Obstructive Pulmonary Disease (COPD), Diabetes Mellitus Type 1, Diabetes Mellitus Type 2, Gastroesophageal Reflux Disease(GERD), MRSA *Have you ever received a pneumonia vaccine?: No *Have you received a flu vaccine this season?: No Other Medical History: Reports: Osteoporosis Laterality Cases: Bilateral: Tonsillectomy Other Surgeries: Yes: Colonoscopy, Tubal Ligation Amputation: No - *Social History Smoking Status: Former smoker Tobacco Type: cigarettes Alcohol Intake: never *Occupational Status:: retired Housing: house Household Members: children *Travel in the last 8 weeks: None Family Hx:: Cancer Review of Systems - Review of Systems Review of systems:: pertinent systems reviewed and negative unless documented below Meds Home Medications Medication Instructions Recorded Confirmed Type Mirtazapine [Remeron 15mg tablet] 15 mg PO HS 07/22/17 09/03/19 History Rasagiline Mesylate 1 mg PO DAILY 07/22/17 09/03/19 History Ibuprofen/Diphenhydramine Cit 2 each PO HS 07/23/17 09/03/19 History [Advil Pm Caplet] Carbidopa/Levodopa [Carbidopa-Levo 0.5 each PO HS 09/03/19 09/03/19 History 25-100 mg Odt] Carbidopa/Levodopa [Carbidopa-Levo 1 each PO TID 09/03/19 09/03/19 History 25-100 mg Odt] Etodolac [Etodolac 400mg Tab] 400 mg PO BID 09/03/19 09/03/19 History Melatonin/Pyridoxine HCl (B6) 2 each PO HS 09/03/19 09/03/19 History [Melatonin 5 mg Tablet] Multivitamin/Iron/Folic Acid 1 each PO DAILY 09/03/19 09/03/19 History [Centrum Complete Multivit Tab] amantadine HCL [Amantadine] 100 mg PO BID 09/03/19 09/03/19 History Allergies Allergy/AdvReac Type Severity Reaction Status Date / Time cephalexin [From KEFLEX] Allergy Unknown STATES Verified 07/22/17 09:03 GIVES YEAST INFECTION Sulfa (Sulfonamide Allergy Unknown anxiety Verified 07/22/17 09:03 Antibiotics) [SULFA (SULFONAMIDE ANTIBIOTICS)] ciprofloxacin [From Cipro] Allergy Verified 09/03/19 13:55 Exam Vital signs and Labs for Last 24 Hours: Temp Pulse Resp BP Pulse Ox 97.7 F 104 H 18 90/80 L 91 L 09/03/19 15:20 09/03/19 15:20 09/03/19 15:20 09/03/19 15:20 09/03/19 15:20 Laboratory Results - last 24 hr 09/03/19 12:25: WBC 7.9, RBC 3.88 L, Hgb 11.9 L, Hct 38.3, MCV 98.6, MCH 30.7, MCHC 31.2 L, RDW 13.4, Plt Count 336, MPV 7.5, Neut % (Auto) 64.9, Lymph % (Auto) 28.8, [place] % (Auto) 5.5, Eos % (Auto) 0.5, Baso % (Auto) 0.3, Neut # (Auto) 5.1, Lymph # (Auto) 2.3, [place] # (Auto) 0.4, Eos # (Auto)
--- NOTE | 2019-09-03 18:48 | ECG_ITS ---
APPROVED REPORT Exam: Resting ECG HR:100 bpm ECG Measurements Heart Rate 100 AXES IL 200 P QRSd 180 QRS 140 QT 656 T -34 QTc 846 <Conclusion> Normal sinus rhythm Motion artifact Abnormal ECG-suggest repeat EKG Electronically signed by : Andrea Louis, 09/05/2019 14:11:06
[2019-09-04] VITALS (20 sets, daily range): BP systolic 92–119; BP diastolic 44–81; PULSE 89–107; RESP 16–19; TEMP 36.6–43; O2SAT 89–96; BMI 22.2
--- NOTE | 2019-09-04 03:22 | PC.NURSE ---
Pt A&O x4, resting in supine position. Has c/o pain to (L) hip this shift with rating of 6-8 on VISUAL MANAGER scale. Pt describes it as an ache. Medicated per jun. Pt is currently NPO for AM surgery. Consent signed and on chart. EKG was attempted per RT with extensive artifact. RT tried multiple times with different EKG machines. MD was notified. OK if EKG not obtained. Spoke with daughter of pt this evening and was that pt has a deep brain stimulator. aware. Will pas on to AM nurse. No other concerns at this time. Will continue to monitor.
[2019-09-04 07:59] LABS: Chloride 106 mmol/L (98-107)
[2019-09-04 08:00] LABS: Potassium 4.3 mmoL/L (3.5-5.1); Sodium 133 mmol/L (136-145)
[2019-09-04 08:02] LABS: Alanine Aminotransferase 11 U/L (12-78); Aspartate Amino Transferase 81 U/L (14-36); Blood Urea Nitrogen 25 mg/dl (7-17); Creatinine Clearance Estimated 44 mL/min (50-200); Estimated Glomerular Filt Rate 99 ml/min (>60); GFR (African American) 120 ML/MIN (>60)
--- NOTE | 2019-09-04 08:02 | HMH.HP ---
*Admission Date: 09/03/19 *Chief complaint: left hip pain after fall *History of present illness: 69 year old female patient of Dr. Carrasco with a history of Parkinson's disease and osteoporosis presented to [facility] ER yesterday afternoon complaining of left hip pain after falling at home. Patient states she lost her balance when trying to get up ad fell on her left side. SHe had immediate pain and was unable to get up. [facility] History Medical History: Reports:: Osteoporosis Denies:: Atherosclerotic Heart Disease, Cancer, Congestive Heart Failure, Chronic Obstructive Pulmonary Disease (COPD), Diabetes Mellitus Type 1, Diabetes Mellitus Type 2, Gastroesophageal Reflux Disease(GERD), MRSA *Have you ever received a pneumonia vaccine?: No *Have you received a flu vaccine this season?: No Other Medical History: Reports: Osteoporosis, Other (Parkinson's disease, Lumbar compression fracture, right clavicle fracture) Laterality Cases: Bilateral: Tonsillectomy Other Surgeries: Yes: Colonoscopy, Tubal Ligation, Other (deep brain stimulator) Amputation: No - *Social History Smoking Status: Former smoker Tobacco Type: cigarettes Alcohol Intake: never *Occupational Status:: retired Housing: house Household Members: children *Travel in the last 8 weeks: None Family Hx:: Cancer Review of Systems - Constitutional Denies chills, Denies fever(s) - Eyes Denies change in vision - ENT Denies bleeding gums - *Cardiovascular Denies chest pain - *Respiratory Denies cough - *Gastrointestinal Denies abdominal pain - *Genitourinary Denies difficulty urinating - *Musculoskeletal Reports muscle weakness - Integumentary/Breasts Denies rash - *Neurologic Reports abnormal walking, Reports abnormal movements, Reports frequent falls, Denies dizziness, Denies loss of vision Meds Home Medications Medication Instructions Recorded Confirmed Type Mirtazapine [Remeron 15mg tablet] 15 mg PO HS 07/22/17 09/03/19 History Rasagiline Mesylate 1 mg PO DAILY 07/22/17 09/03/19 History Ibuprofen/Diphenhydramine Cit 2 each PO HS 07/23/17 09/03/19 History [Advil Pm Caplet] Carbidopa/Levodopa [Carbidopa-Levo 0.5 each PO HS 09/03/19 09/03/19 History 25-100 mg Odt] Carbidopa/Levodopa [Carbidopa-Levo 1 each PO TID 09/03/19 09/03/19 History 25-100 mg Odt] Etodolac [Etodolac 400mg Tab] 400 mg PO BID 09/03/19 09/03/19 History Melatonin/Pyridoxine HCl (B6) 2 each PO HS 09/03/19 09/03/19 History [Melatonin 5 mg Tablet] Multivitamin/Iron/Folic Acid 1 each PO DAILY 09/03/19 09/03/19 History [Centrum Complete Multivit Tab] amantadine HCL [Amantadine] 100 mg PO BID 09/03/19 09/03/19 History Allergies Allergy/AdvReac Type Severity Reaction Status Date / Time cephalexin [From KEFLEX] Allergy Unknown STATES Verified 07/22/17 09:03 GIVES YEAST INFECTION Sulfa (Sulfonamide Allergy Unknown anxiety Verified 07/22/17 09:03 Antibiotics) [SULFA (SULFONAMIDE ANTIBIOTICS)] ciprofloxacin [From Cipro] Allergy Verified 09/03/19 13:55 Exam Vital signs and Labs for Last 24 Hours: Temp Pulse Resp BP Pulse Ox 98.0 F 107 H 17 99/58 L 93 L 09/04/19 07:29 09/04/19 07:29 09/04/19 07:29 09/04/19 07:29 09/04/19 07:29 Laboratory Results - last 24 hr 09/03/19 12:25: WBC 7.9, RBC 3.88 L, Hgb 11.9 L, Hct 38.3, MCV 98.6, MCH 30.7, MCHC 31.2 L, RDW 13.4, Plt Count 336, MPV 7.5, Neut % (Auto) 64.9, Lymph % (Auto) 28.8, [place] % (Auto) 5.5, Eos % (Auto) 0.5, Baso % (Auto) 0.3, Neut # (Auto) 5.1, Lymph # (Auto) 2.3, [place] # (Auto) 0.4, Eos # (Auto) 0.0, Baso # (Auto) 0.0 09/03/19 12:25: Sodium 139, Potassium 4.2, Chloride 107, Carbon Dioxide 27, Anion Gap 9.2, BUN 29 H, Creatinine 0.80, Estimated Creat Clear 42, Estimated GFR 71, Est GFR ( Amer) 86, Glucose 115 H, Calcium 9.4, Total Bilirubin 1.2, AST 23, ALT 8 L, Alkaline Phosphatase 60, Total Protein 7.1, Albumin 4.3, Globulin 2.8, Albumin/Globulin Ratio 1.5 09/02
[2019-09-04 08:03] LABS: Albumin Level 3.1 g/dl (3.5-5.0); Albumin/Globulin Ratio 1.3 (1.1-1.8); Alkaline Phosphatase 59 U/L (38-126); Anion Gap 5.3 mEq/L (5-15); Bilirubin,Total 1.1 mg/dl (0.2-1.3); Carbon Dioxide 26 mmol/L (22.0-30.0); Globulin 2.4 g/dL (1.3-3.2); Glucose 114 mg/dl (74-100); MANUAL DIFFERENTIAL MANUAL DIFFERENTIAL (MANUAL DIFF); Total Protein,Serum 5.5 g/dl (6.3-8.2)
[2019-09-04 08:04] LABS: Eosinophils # 0.1 K/mm3 (0.0-0.4)
[2019-09-04 08:07] LABS: Basophils % 0.2 % (0.1-2.0); Eosinophils % 0.8 % (0.1-12.0); Hematocrit 27.4 % (37.0-47.0); Lymphocytes # 1.9 K/mm3 (0.7-4.5); Lymphocytes % 26.3 % (10-50); Mean Corpuscular HGB Conc 31.3 g/dL (31.8-35.4); Mean Corpuscular Hemoglobin 30.6 pg (27.0-31.2); Mean Corpuscular Volume 97.6 fl (81-99); Mean Platelet Volume 7.6 fl (7.4-10.4); Monocytes # 0.4 K/mm3 (0.1-1.0); Neutrophils # 4.9 K/mm3 (1.8-7.8); Neutrophils % 67.6 % (37.0-80.0); Platelet Count 244 K/mm3 (142-424); Red Blood Count 2.81 M/mm3 (4.20-5.40); Red Cell Distribution Width 13.5 % (11.5-17.5); White Blood Count 7.2 K/mm3 (4.8-10.8)
[2019-09-04 08:10] LABS: Hemoglobin 8.6 g/dL (12.2-16.2)
[2019-09-04 09:40] LABS: Eosinophils % 3 % (0-3); Lymphocytes % 34 % (10-50); Monocytes % 5 % (2-9); Neutrophils % 56 % (42-76); Platelet Estimate Normal; RBC Morphology Normal; Total Cells Counted 100
--- NOTE | 2019-09-04 09:46 | P.PN_ITS ---
[facility] Anesthesia Checklist - Patient Identification Patient Identification: Arm Band - Structural Data Admitted From: Home Planned Operative Procedure/s: left hip gamma nail Consent for Planned Operative Procedure(s) Verified: Yes Verified Documents: Surgical Consent, History and Physical - NPO Status Verified Time NPO: 00:00 - Additional verifications Anesthesia Reactions: No - Airway Assessment C-Spine Mobility Assessed: Yes (mp2) TMJ Mobility Assessed: Yes Dentition: Good Dentition - Neurological Assessment Level of Consciousness: Awake, Alert - Anesthesia Plan Anesthesia Risk discussed: Yes Anesthesia Plan: Verified ASA Class: III (e) Anesthesia Type: MAC w/Spinal (risks/benefits explained to pt and family. Pt/family verbalize understanding) [facility] History I have reviewed the patient's past medical history: Yes Medical History: Reports:: Osteoporosis Denies:: Atherosclerotic Heart Disease, Cancer, Congestive Heart Failure, Chronic Obstructive Pulmonary Disease (COPD), Diabetes Mellitus Type 1, Diabetes Mellitus Type 2, Gastroesophageal Reflux Disease(GERD), MRSA *Have you ever received a pneumonia vaccine?: No *Have you received a flu vaccine this season?: No Other Medical History: Reports: Osteoporosis, Other (Parkinson's disease, Lumbar compression fracture, right clavicle fracture) Anesthesia experience/problems:: nac Laterality Cases: Bilateral: Tonsillectomy Other Surgeries: Yes: Colonoscopy, Tubal Ligation, Other (deep brain stimulator) Amputation: No - *Social History Smoking Status: Former smoker Tobacco Type: cigarettes Alcohol Intake: never Substance Use Type: denies use *Occupational Status:: retired Housing: house Household Members: children *Travel in the last 8 weeks: None Family Hx:: Cancer
--- NOTE | 2019-09-04 10:25 | XR_ITS ---
PROCEDURE: XR HIP LT 2-3V W/PELVIS CLINICAL INDICATION: in pacu, s/p left intramedullary nailing COMPARISON: XR HIP LT 2-3V W/PELVIS from 09/03/2019 FINDINGS: The gamma nail is seen obliquely oriented in the femoral neck and head fixated to the intramedullary teresa extending from the greater trochanter to the proximal 3rd of the femur. There has been satisfactory reduction of the intertrochanteric fracture. There is a large fracture fragment of the lesser trochanter situated at basically right angles to the proximal femoral shaft. Metallic sutures are seen in the skin line IMPRESSION: Satisfactory ORIF intertrochanteric fracture Dictated by: Dr. Tom aPrra MD 09/04/2019 17:[address] Tom Parra MD in [place] 09/04/2019 17:18
--- NOTE | 2019-09-04 10:45 | XR_ITS ---
PROCEDURE: XR HIP LT 2-3V W/PELVIS CLINICAL INDICATION: INTRAMEDULLARY NAIL OR COMPARISON: No exams were available for comparison FINDINGS: Fluoroscopy time: 1 minutes and 31 seconds Multiple fluoro images submitted during ORIF the left intertrochanteric hip fracture. Gamma nail with short intramedullary teresa was placed with good alignment. There remains medial displacement of the lesser trochanter fragment IMPRESSION: Good alignment status post ORIF left intertrochanteric fracture. Dictated by: Lamont Vincent MD 09/05/2019 12:48 Electronically signed by Lamont Vincent MD in [place] 09/05/2019 12:48
--- NOTE | 2019-09-04 11:19 | HMH.ANESI ---
[facility] Anesthesia Record Part I Intake, IV Amount: 1,300 Estimated blood loss (mL): 50 Urine output (mL): 200 Blood Pressure: 109/81 SaO2: 93 Pulse Rate: 91 Respiratory Rate: 16 Temperature: 98.1 F Patient is:: Drowsy, Stable Stable to PACU at:: 11:05
--- NOTE | 2019-09-04 11:30 | P.CONPHA_ITS ---
[facility] Pharmacy VTE Monitoring - Patient Demographics Admission date: 09/04/19 Report Date: 09/04/19 Time: 11:30 Allergies/Adverse Reactions: Patient Allergies cephalexin [From KEFLEX] Allergy (Unknown, Verified 07/22/17 09:03) STATES GIVES YEAST INFECTION Sulfa (Sulfonamide Antibiotics) [SULFA (SULFONAMIDE ANTIBIOTICS)] Allergy (Unknown, Verified 07/22/17 09:03) anxiety ciprofloxacin [From Cipro] Allergy (Verified 09/03/19 13:55) Height: 1.52 m Weight: 51.426 kg Patient Problems: Current Active Problems Hip fracture, left (Acute) Intertrochanteric fracture of left femur (Acute) - VTE Risk Labs: VTE Related Lab Results Hgb 8.6 g/dL (12.2-16.2) L D 09/04/19 07:44 Hct 27.4 % (37.0-47.0) L 09/04/19 07:44 Plt Count 244 K/mm3 (142-424) D 09/04/19 07:44 BUN 25 mg/dl (7-17) H 09/04/19 07:44 Creatinine 0.60 mg/dl (0.52-1.04) D 09/04/19 07:44 Estimated Creat Clear 44 mL/min (50-200) 09/04/19 07:44 - Prophylaxis Types of VTE Prophylaxis: IPCS Knee High (ICDS ORDERED BY )
--- NOTE | 2019-09-04 11:30 | HMH.PHAINT ---
MED REC-COMPARED MED HISTORY, MED LIST, AND RX BOTTLES. DOSING TIMES ADJUSTED.
--- NOTE | 2019-09-04 11:31 | HMH.OPNOTE ---
Date of procedure: 09/04/19 Pre-op Diagnosis:: L intertrochanteric femur fracture Post-op Diagnosis:: L intertrochanteric femur fracture Procedure performed:: intramedullary nail (IMN) L femur Surgeon:: Carol Berg MD Parking Regulation Enforcement Officer(s):: KYRIE Julien BURR BENCH OPERATOR:: Terrance Cota Anesthesia: MAC, spinal Estimated blood loss (mL): 50 Clinical Note:: 69yo F admitted yesterday from the ED after acute onset left hip pain from a fall sustained at home that morning. She lives with her daughter and grandchildren, who were at home at the time of the injury. The patient was in the kitchen and walked to the refrigerator, catching her foot on the carpet and falling on the left side of the body. She typically ambulates with a walker. Pain is currently rated as a 4 out of 10, sharp in nature and localized to the left hip. She does not believe she lost consciousness during the fall. She has an underlying history of Parkinson's disease and says that she typically aches all over at baseline. She had a deep brain stimulator placed in September 2018 and after this procedure she developed C. difficile colitis, requiring a 6-week stay in a long-term facility. I spoke via telephone with her daughter Violeta this evening, who accepts the patient's power of trade mark attorney. She says that her mother's Parkinson's has advanced very significantly in the last 3 years and that her quality of life has declined. She does not take any anticoagulants. The patient denies chest pain or shortness of breath at baseline. I discussed treatment options with the patient in person and with her daughter Violeta via telephone (Violeta Ferreira [phone]; POA). I recommend intramedullary nail placement to stabilize the fracture and allow early mobilization and hopefully improved outcome and quality of life. I discussed the risks of non-operative treatment, including the need for prolonged non-weightbearing on that extremity, which would likely render her bedbound, with the likelihood of fracture non-union or malunion, leading to persistent pain and disability, in addition to the risks of prolonged immobility, including DVT/PE, pressure sores and pneumonia. I also discussed the risks of surgery, including but not limited to bleeding, infection, fracture non-union, fracture propagation intra-operatively requiring a change in fixation, persistent pain despite surgery, decline in function despite surgery requiring permanent wheelchair use, and risks of anesthesia including heart attack, stroke and . The patient wishes to proceed with surgery, and her daughter is in agreement. Both women vocalized understanding and informed consent was obtained. Operative findings:: Aakash gamma nail 11 x 180mm, 130 degree 10.5 x 85mm lag screw 5 x 30mm distal interlocking screw Operative note:: The patient was identified in preoperative holding and the L hip signed by myself. The patient was then taken to the operating room where spinal anesthetic administered and 900mg clindamycin was infused. The patient was then transferred to the fracture table and sedated intravenously for the procedure. The L leg was secured to the foot plate of the fracture table and the R leg placed in an extended/lowered position, scissoring the legs so that the R leg was well protected but out of the way of both the L hip and C-arm. Timeout was performed, identifying the correct patient, correct procedure and correct site. Next the L hip fracture was visualized under fluoro and closed reduction performed using the fracture table and a combination of hip adduction, internal rotation and longitudinal traction. The comminuted intertrochanteric femur fracture was reduced into acceptable alignment and then prepped and draped in the usual sterile fashion for a femoral intramedullary nail procedure. The procedure was begun by using a free guide pin held over the L hip to localize the level of the greater trochanter. Approximately 3cm proximal to thi
--- NOTE | 2019-09-04 11:47 | HMH.ORTHPN ---
Subjective Date: 09/04/19 Time: 11:30 Principal diagnosis: L hip fracture Interval history: The patient underwent IMN L femur this morning without complication. EBL 50cc, 1300cc crystalloid received, UOP 200cc. Surgery was performed under spinal anesthetic. The patient was awake and alert in PACU but sensation/motor function had not returned to the lower extremities yet. PN: Obj Ex Vital signs: Temp Pulse Resp BP Pulse Ox 98.1 F 91 H 16 109/81 L 93 L 09/04/19 11:20 09/04/19 11:20 09/04/19 11:20 09/04/19 11:20 09/04/19 11:05 - Constitutional no acute distress - Routine HEENT Exam Head: Present: normocephalic Eye: Present: EOMI ENT: Present: mucous membranes moist - Routine Respiratory Exam Absent: respiratory distress, wheezes - Routine Cardiovascular Exam Present: RRR - Routine Abdominal Exam Present: soft. Absent: distended - Routine Exam Comments: taylor to gravity with clear yellow urine - Routine Extremities Exam Comments: L hip dressings c/d/i no motor/sensory below waist due to spinal - Routine Skin Exam Present: warm - Routine Neurological Exam Present: alert, oriented X3 - Urinary Catheter Management Taylor Cath placed during this visit: no Progress Note: A&P (1) Intertrochanteric fracture of left femur Status: Acute Current Visit: Yes (2) Osteoporosis Status: Chronic Current Visit: No (3) Parkinsons disease Status: Chronic Current Visit: No Assessment and Plan for All Diagnoses:: 69yo F POD 0 s/p IMN L femur for IT fx -- WBAT LLE, out of bed with assist/walker -- PT/OT to eval -- ice pack L hip as needed -- d/c taylor tomorrow morning -- pain control: oral norco, IV morphine PRN -- DVT prophy: lovenox 40mg SQ daily starting tomorrow -- SCD RLE -- encourage IS 10x/hr while awake -- dispo planning: SNF vs home with HHPT
--- NOTE | 2019-09-04 11:55 | PC.NURSE ---
1115-radiology at bedside 1118-pt's daughter at bedside 1133-detailed report called to EFRAIN Marion 1135-pt transported to post op via hospital bed with devendra rails up per ESAU Amaya and EFRAIN Maldonado and left in care of EFRAIN Marion with bed locked in lowest position, vss, pt stable
--- NOTE | 2019-09-04 15:21 | P.PN_ITS ---
[facility] Anesthesia Record Part II Discharge Time: 11:35 Destination: Medical Surgical Department PACU nurse assessment reviewed?: Yes Patient Condition:: Good Anesthesia Complications:: None Swallowing reflex intact?: Yes Cyanosis?: No Blood Pressure: 107/52 Pulse Rate: 90 Temperature: 98.4 F Mental Status: Alert & Oriented Pain level:: 0 Nausea and/or vomitting:: None Intake, IV Amount: 0
--- NOTE | 2019-09-04 15:39 | PC.NURSE ---
9:45 PATIENT LEFT FLOOR VIA BED FOR SURGERY. 11:50 PATIENT ARRIVED BACK ON FLOOR VIA BED. PATIENT AWAKE PLAYING ON CELL PHONE. NO COMPLAINTS OF PAIN, DRESSING CLEAN DRY AND INTACT. DR. OSHEA ON FLOOR, PER MD LEAVE BRENNAN IN PLACE UNTIL 09/05/2019. PATIENT ATE LUNCH AND TOLERATED WELL. NO OTHER NEEDS OR CONCERNS AT THIS TIME.
[2019-09-05] VITALS (25 sets, daily range): BP systolic 85–134; BP diastolic 49–79; PULSE 86–99; RESP 16–20; TEMP 36.8–37.3; O2SAT 84–96; BMI 24.0
--- NOTE | 2019-09-05 02:14 | PC.NURSE ---
Pt maintained her baseline assessment through the shift. Dressing remains clean,dry,intact. Pt reports she is ready for PT and wants to get better. Pt's pain has been mostly controlled with oral pain medication with the exception of occasional muscle spasms in the hip area. Pt is now sleeping [facility] in reach.
[2019-09-05 06:14] LABS: Basophils % 0.2 % (0.1-2.0); Eosinophils # 0.1 K/mm3 (0.0-0.4); Eosinophils % 1.1 % (0.1-12.0); Lymphocytes # 1.8 K/mm3 (0.7-4.5); Lymphocytes % 29.2 % (10-50); Mean Corpuscular HGB Conc 31.1 g/dL (31.8-35.4); Mean Corpuscular Hemoglobin 30.7 pg (27.0-31.2); Mean Corpuscular Volume 98.6 fl (81-99); Mean Platelet Volume 8.8 fl (7.4-10.4); Monocytes # 0.4 K/mm3 (0.1-1.0); Monocytes % 5.8 % (1.7-9.3); Neutrophils % 63.7 % (37.0-80.0); Platelet Count 171 K/mm3 (142-424); Red Blood Count 2.25 M/mm3 (4.20-5.40); Red Cell Distribution Width 13.4 % (11.5-17.5); White Blood Count 6.2 K/mm3 (4.8-10.8)
[2019-09-05 06:20] LABS: Chloride 107 mmol/L (98-107)
[2019-09-05 06:21] LABS: Potassium 4.1 mmoL/L (3.5-5.1); Sodium 135 mmol/L (136-145)
[2019-09-05 06:23] LABS: Alanine Aminotransferase 11 U/L (12-78); Albumin Level 2.7 g/dl (3.5-5.0); Albumin/Globulin Ratio 1.2 (1.1-1.8); Alkaline Phosphatase 45 U/L (38-126); Anion Gap 3.1 mEq/L (5-15); Aspartate Amino Transferase 38 U/L (14-36); Bilirubin,Total 0.7 mg/dl (0.2-1.3); Blood Urea Nitrogen 14 mg/dl (7-17); Carbon Dioxide 29 mmol/L (22.0-30.0); Creatinine Clearance Estimated 44 mL/min (50-200); Estimated Glomerular Filt Rate 99 ml/min (>60); GFR (African American) 120 ML/MIN (>60); Globulin 2.2 g/dL (1.3-3.2); Total Protein,Serum 4.9 g/dl (6.3-8.2)
[2019-09-05 06:24] LABS: Calcium 7.9 mg/dl (8.4-10.2); Glucose 125 mg/dl (74-100)
[2019-09-05 06:47] LABS: Hematocrit 22.2 % (37.0-47.0); Hemoglobin 6.9 g/dL (12.2-16.2)
--- NOTE | 2019-09-05 08:29 | HMH.ACPN2 ---
<Evelin Carlson - Last Filed: 09/05/19 08:29> Internal Medicine - PN: Subj *Date: 09/05/19 *Time: 08:29 Interval history: Patient states she is doing quite well this morning. She slept. She enjoyed her breakfast. She states her hip does not hurt but requests pain medicine. She just continues with Fagan catheter to bedside drainage. She denies chest pain and shortness of breath. Hemoglobin this morning is 6.9 with a hematocrit of 22.2. Blood chemistries show a normal kidney function Exam Vital signs and Labs for Last 24 Hours: Temp Pulse Resp BP Pulse Ox 98.7 F 98 H 18 108/60 L 91 L 09/05/19 08:02 09/05/19 08:02 09/05/19 08:02 09/05/19 08:02 09/05/19 08:02 Laboratory Results - last 24 hr 09/03/19 19:26: Crossmatch ([facility]) See Detail 09/04/19 07:44: Total Counted 100, Neutrophils % (Manual) 56, Band Neutrophils % 2.0, Lymphocytes % (Manual) 34, Monocytes % (Manual) 5, Eosinophils % (Manual) 3, Platelet Estimate Normal, RBC Morphology Normal 09/05/19 06:00: WBC 6.2, RBC 2.25 L, Hgb 6.9 L*, Hct 22.2 L*, MCV 98.6, MCH 30.7, MCHC 31.1 L, RDW 13.4, Plt Count 171 D, MPV 8.8, Neut % (Auto) 63.7, Lymph % (Auto) 29.2, [place] % (Auto) 5.8, Eos % (Auto) 1.1, Baso % (Auto) 0.2, Neut # (Auto) 4.0, Lymph # (Auto) 1.8, [place] # (Auto) 0.4, Eos # (Auto) 0.1, Baso # (Auto) 0.0 09/05/19 06:00: Sodium 135 L, Potassium 4.1, Chloride 107, Carbon Dioxide 29, Anion Gap 3.1 L, BUN 14 D, Creatinine 0.60, Estimated Creat Clear 44, Estimated GFR 99, Est GFR ( Amer) 120, Glucose 125 H, Calcium 7.9 L, Total Bilirubin 0.7, AST 38 H D, ALT 11 L, Alkaline Phosphatase 45, Total Protein 4.9 L, Albumin 2.7 L D, Globulin 2.2, Albumin/Globulin Ratio 1.2 09/05/19 08:00: Blood Type Confirm A Positive I & O for Last 24 hours: Intake & Output 09/02/19 09/03/19 09/04/19 09/05/19 11:59 11:59 11:59 11:59 Intake Total 1420 / 1420 4074 / 4074 Output Total 625 / 625 1000 / 1000 Balance 795 / 795 3074 / 3074 Weight 113 lb 6 oz 122 lb 4 oz Microbiology Reports for the Last 24 Hours: Microbiology 09/03/19 12:25 Urine,Catheterized Urine Culture - Preliminary - Constitutional no acute distress Comments: Playing a game on her telephone. Appears comfortable - *Routine Respiratory Exam Present: CTA bilaterally (Anteriorly and posteriorly) - *Routine Cardiovascular Exam Present: RRR - *Routine Abdominal Exam Present: soft, normoactive bowel sounds. Absent: tenderness - *Routine Extremities Exam Absent: edema, calf tenderness Comments: SCUDs in place. Left hip dressing clean and dry. - *Routine Neurological Exam Present: alert, oriented X3 Assessment and Plan (1) Intertrochanteric fracture of left femur Current visit: Yes Status: Acute Category: Medical Code(s): S72.142A - Displaced intertrochanteric fracture of left femur, initial encounter for closed fracture (2) Osteoporosis Current visit: No Status: Chronic Category: Medical Code(s): M81.0 - Age-related osteoporosis without current pathological fracture (3) Parkinsons disease Current visit: No Status: Chronic Category: Medical Code(s): G20 - Parkinson's disease (4) Postoperative anemia Current visit: Yes Status: Acute Category: Medical Code(s): D64.9 - Anemia, unspecified - Assessment and plan all Dx Assessment and Plan for all problems:: Packed red blood cell administration. Routine postoperative care as per Dr. Berg. <Bandar Lilly - Last Filed: 09/05/19 08:40> Internal Medicine - PN: Subj *Date: 09/05/19 *Time: 08:39 Exam Vital signs and Labs for Last 24 Hours: Temp Pulse Resp BP Pulse Ox 98.7 F 98 H 18 108/60 L 91 L 09/05/19 08:02 09/05/19 08:02 09/05/19 08:02 09/05/19 08:02 09/05/19 08:02 Laboratory Results - last 24 hr 09/03/19 19:26: Crossmatch ([facility]) See Detail 09/04/19 07:44: Total Counted 100, Neutrophils % (Manual) 56, Band Neutrophils % 2.0, Lymphocytes % (Manual)
--- NOTE | 2019-09-05 12:54 | HMH.ORTHPN ---
Subjective Date: 09/05/19 Time: 12:00 Principal diagnosis: L hip fracture Interval history: The patient is doing well this morning, no complaints. Hgb dropped overnight to 6.9, received blood this morning. Has not been able to do PT yet because of anemia/transfusion. PN: Obj Ex Vital signs: Temp Pulse Resp BP Pulse Ox 98.3 F 96 H 18 95/53 L 94 L 09/05/19 11:30 09/05/19 11:30 09/05/19 11:30 09/05/19 11:30 09/05/19 11:30 - Constitutional no acute distress - Routine HEENT Exam Head: Present: normocephalic Eye: Present: EOMI ENT: Present: mucous membranes moist - Routine Respiratory Exam Absent: respiratory distress, wheezes - Routine Cardiovascular Exam Present: RRR - Routine Abdominal Exam Present: soft. Absent: distended - Routine Extremities Exam Comments: L hip dressings c/d/i, no strikethrough +DF/PF/EHL LLE SILT distally LLE in all distributions palpable pedal pulses LLE, foot warm with BCR L calf soft, non-tender - Routine Neurological Exam Present: alert, oriented X3 - Urinary Catheter Management Taylor Cath placed during this visit: no Progress Note: A&P (1) Intertrochanteric fracture of left femur Status: Acute Current Visit: Yes (2) Osteoporosis Status: Chronic Current Visit: No (3) Parkinsons disease Status: Chronic Current Visit: No (4) Postoperative anemia Status: Acute Current Visit: Yes Assessment and Plan for All Diagnoses:: 69yo F POD 1 s/p IMN L femur for IT fx -- WBAT LLE, out of bed with assist/walker -- PT/OT to eval -- ice pack L hip as needed -- d/c taylor today -- pain control: oral norco, IV morphine PRN -- DVT prophy: lovenox 40mg SQ daily starting today -- SCD RLE -- encourage IS 10x/hr while awake -- dispo planning: SNF vs home with HHPT
--- NOTE | 2019-09-05 13:00 | SW/DCPLANNER ---
Addendum entered by Veronique Ngo 09/05/19 13:52: PT has stated that patient will be able to benefit from placement. Patient has requested that patient information be faxed to [facility]. I have spoke with Nanda at [facility] has she has stated that they do have beds available. Patient information has been faxed. I will speak with patients daughter (Violeta) and patient regarding discharge plans. Original Note: This patient currently resides at home with her daughter. Patient does have to receive blood today. Once PT is able to evaluate this patient I will follow up with patient and her family regarding discharge plans. Discharge date is unknown at this time.
--- NOTE | 2019-09-05 13:28 | HMH.PTEV ---
Physical Therapy Evaluation Rehab PT IP Evaluation Start: 09/04/19 11:20 Freq: ONCE Status: Active Protocol: Document 09/05/19 13:23 VICKY (Rec: 09/05/19 13:28 VICKY [id number]) Subjective/History History History This is the initial IP PT evalaution for Criselda Odonnell. Pt is a 69 y/o female admitted to [facility] s/p fall at home. Pt fx'd L hip requiring IMN placement. Pt has PMH of parkinson's dz and lives w/ daughter and her children. Pt uses walker at home to ambulate and transfer and a w/c to go outside. Subjective Subjective Pt c/o pain in L hip Rehab PT IP Eval Objective Appearance Patient Behavior Cooperative Patient Orientation Person,Place,Time Difficulty following instructions none Speech Pattern Delayed,Garbled Ambulation Observation Ambulation Distance (feet) 0 Balance Ability to Arise Unable Sitting Balance Leans or slides in chair Standing Balance Unsteady Dynamic Sitting Balance Ability Poor Dynamic Standing Balance Ability Poor Transfers Bed Transfer Ability Minimal x 1 (25% assist) Sit to Stand Bed Transfer Ability Minimal x 1 (25% assist) ROM All Extremities PT ROM Status ABN Abnormal ROM Comment 50% ROM MMT All Extremities PT MMT ABN Abnormal MMT Grade 3-/5 Rehab PT IP prob,goals,plan Problems Date of Evaluation: 09/05/19 PT IP Problems Bed Mobility,Transfers,Gait, Balance,Self care,Safety Rehab Potential Rehab Potential Fair Equipment Needs Assistive Devices Rolling / Wheeled Walker Plan PT Intervention Plan Bed Mobility,Transfers,Gait, Balance,Self care,Safety, Therapeutic Exercise PT Plan Frequency BID Duration LOS Discharge Goals Bed Transfer Ability Minimal x 1 (25% assist) Sit to Stand Chair Transfer Ability Minimal x 1 (25% assist) Ambulation Assistive Device Rolling Walker Ambulation Distance (feet) 5 Discharge Plan PT Discharge Plan Pt to benefit from SNF for rehab to allow return to PLOF and PLOI. Pt at this time she is home alone, and will need to be more independent and
--- NOTE | 2019-09-05 13:35 | HMH.OTEV ---
OT Inpatient Evaluation Rehab OT IP Evaluation Start: 09/04/19 11:20 Freq: ONCE Status: Complete Protocol: Document 09/05/19 13:29 [facility] (Rec: 09/05/19 13:34 [facility] [id number][facility] Rehab OT IP Assessment Subjective History Pt was oriented x3 upon arrival. Pt agreeable to engage in therapy evaluation. Pt was admitted via ED on 09/02 after falling at home. Pt went to stand up and fell onto her left side; resulting in a left hip fracture. Pt had a left IMN on 09/04/19. Pt reports prior to her fall she lived with her daughter and her 3 grandchildren. Pt did have someone come and sit with her 3x's a week. Pt claims she was independent with feeding and dressing. However , pt did require assistance with shower. Pt was dependent upon family to complete all IADL's. Pt was able to walk still with a rolling walker prior to fall. Subjective I can try. Objective Patient Orientation Person,Place,Birthday Upper Extremity Gross ROM WFL Bed Mobility bed mobility-scooting,bed mobility - supine/sit,bed mobility - rolling Assist Level Moderate x 2 (50% assist) Transfer Training Sit/Stand Transfer Assist Level Minimal x 1 (25% assist) Rehab OT IP prob,goals,plan Problems Date of Evaluation: 09/05/19 OT IP Problems Bed Mobility,Transfers,Gait, Balance,Self care,Safety Rehab Potential Rehab Potential Good Equipment Needs Assistive Devices Rolling / Wheeled Walker Plan OT intervention Plan Bed Mobility,Transfers,Gait, Balance,Self care,Safety, Therapeutic Exercise OT Plan Frequency Daily Duration LOS Discharge Goals Bed Mobility Ability Assistance x1 Sit to Stand Chair Transfer Ability Contact Guard/Hand Hold Chair Transfer Ability Contact Guard/Hand Hold Chair Transfer Technique Sit to/from Ambulatory Chair Transfer Assistive Devices Rolling Walker Self care skills uses utensils to feed self
[2019-09-05 19:11] LABS: Hematocrit 29.2 % (37.0-47.0)
--- NOTE | 2019-09-05 19:12 | PC.NURSE ---
report given to gerard
[2019-09-05 19:16] LABS: Hemoglobin 9.3 g/dL (12.2-16.2)
--- NOTE | 2019-09-05 20:21 | PC.NURSE ---
Pt is alert and oriented and able to make needs known. Has been on 1 L NC this shift.Has had 2 units of blood and tolerated well. VSS, did make Dr. Lilly this am that pt did have some low BP's with MAP's less than 65, he stated to make no changes at that time, cont with blood transfusion as ordered and cont to mx. Maps have improved at this time. Have medicated per jun for L hip pain with po norco. Have given report to oncoming RN. Have also spoke with POA several times this shift with updates on pts condition.
[2019-09-06] VITALS (7 sets, daily range): BP systolic 117–132; BP diastolic 60–75; PULSE 88–108; RESP 16–20; TEMP 36.7–37.6; O2SAT 88–96; BMI 23.6
--- NOTE | 2019-09-06 02:29 | PC.NURSE ---
Left hip dressing c/d/i with slight swelling noted. Pt requested pain meds x 2 thus far. Vital signs stable, 02 saturation wnl with 021LNC in place, afebrile. Nothing acute to report this shift, pt presently resting with call light w/i reach, monitoring continues.
--- NOTE | 2019-09-06 08:05 | HMH.ACPN2 ---
<Evelin Carlson - Last Filed: 09/06/19 08:05> Internal Medicine - PN: Subj *Date: 09/06/19 *Time: 08:05 Interval history: Patient states she did sleep some. She states that her hip does hurt. Pain medicine helps. She stood at the bedside with physical therapy yesterday. She did receive 2 units of packed red blood cells. She is eating poorly. She continues to play with games on her phone. Chest pain and shortness of breath. Patient is on 1 L of oxygen per nasal cannula due to decrease in O2 sats. She uses her incentive spirometer poorly. O2 sats have improved since receiving blood. Nurse will try to wean. Hemoglobin /hematocrit this a.m. are 9.3 and 29.2. Exam Vital signs and Labs for Last 24 Hours: Temp Pulse Resp BP Pulse Ox 98.0 F 96 H 20 121/60 96 09/06/19 07:47 09/06/19 07:47 09/06/19 07:47 09/06/19 07:47 09/06/19 07:47 Laboratory Results - last 24 hr 09/03/19 19:26: Blood Type A Positive, Antibody Screen Negative, Crossmatch (AHG) See Detail 09/05/19 08:00: Blood Type Confirm A Positive 09/05/19 19:00: Hgb 9.3 L D, Hct 29.2 L I & O for Last 24 hours: Intake & Output 09/03/19 09/04/19 09/05/19 09/06/19 11:59 11:59 11:59 11:59 Intake Total 1420 / 1420 4074 / 4074 2578 / 2578 Output Total 625 / 625 1000 / 1000 1300 / 1300 Balance 795 / 795 3074 / 3074 1278 / 1278 Weight 113 lb 6 oz 122 lb 4 oz 120 lb Microbiology Reports for the Last 24 Hours: Microbiology 09/03/19 12:25 Urine,Catheterized Urine Culture - Preliminary - Constitutional no acute distress Comments: Sitting up in the bed eating a little breakfast. And she wants to play her game on her phone.. - *Routine Respiratory Exam Present: CTA bilaterally (Anteriorly and posteriorly) - *Routine Cardiovascular Exam Present: RRR - *Routine Abdominal Exam Present: soft, normoactive bowel sounds. Absent: tenderness, distended - *Routine Extremities Exam Absent: edema, calf tenderness Comments: Left hip dressing is clean and dry. SCUDs on bilateral lower legs. - *Routine Neurological Exam Present: alert, oriented X3 Assessment and Plan (1) Intertrochanteric fracture of left femur Current visit: Yes Status: Acute Category: Medical Code(s): S72.142A - Displaced intertrochanteric fracture of left femur, initial encounter for closed fracture (2) Osteoporosis Current visit: No Status: Chronic Category: Medical Code(s): M81.0 - Age-related osteoporosis without current pathological fracture (3) Parkinsons disease Current visit: No Status: Chronic Category: Medical Code(s): G20 - Parkinson's disease (4) Postoperative anemia Current visit: Yes Status: Acute Category: Medical Code(s): D64.9 - Anemia, unspecified - Assessment and plan all Dx Assessment and Plan for all problems:: Continue with rehab. Patient plan is for her to go to a skilled facility for ongoing rehab. <Mark Crum - Last Filed: 09/06/19 13:31> Internal Medicine - PN: Subj *Date: 09/06/19 *Time: 13:30 Exam Vital signs and Labs for Last 24 Hours: Temp Pulse Resp BP Pulse Ox 98.0 F 96 H 20 121/60 96 09/06/19 07:47 09/06/19 07:47 09/06/19 07:47 09/06/19 07:47 09/06/19 07:47 Laboratory Results - last 24 hr 09/03/19 19:26: Blood Type A Positive, Antibody Screen Negative, Crossmatch (AHG) See Detail 09/05/19 19:00: Hgb 9.3 L D, Hct 29.2 L I & O for Last 24 hours: Intake & Output 09/03/19 09/04/19 09/05/19 09/06/19 11:59 11:59 11:59 11:59 Intake Total 1420 / 1420 4074 / 4074 2578 / 2578 Output Total 625 / 625 1000 / 1000 1300 / 1300 Balance 795 / 795 3074 / 3074 1278 / 1278 Weight 113 lb 6 oz 122 lb 4 oz 120 lb Microbiology Reports for the Last 24 Hours: Microbiology 09/03/19 12:25 Urine,Catheterized Urine Culture - Preliminary Assessment and Plan (1) Intertrochanteric fracture of left femur Current visit: Yes Status: Acut
--- NOTE | 2019-09-06 10:16 | SW/DCPLANNER ---
Addendum entered by Veronique Ngo 09/06/19 16:20: [facility] has called and stated that precert has been completed and they can accept this patient for tomorrow. Addendum entered by Veronique Kenyon 09/06/19 13:22: COVID is negative and patient has been accepted to [facility]. I will notified patient, family and MD. Original Note: Updated patient information has been faxed to [facility] at [facility]. Patient will also be tested for COVID19 per [facility] admission request. I will fax results once available in computer.
[2019-09-06 10:22] LABS: Adenovirus,PCR Not Detected (NotDetected); Bordetella Pertussis Not Detected (NotDetected); Chlamydophila Pneumoniae, PCR Not Detected (NotDetected); Coronavirus 19, PCR Not Detected (NotDetected); Coronavirus 229E Not Detected (NotDetected); Coronavirus NL63 Not Detected (NotDetected); Coronavirus OC43 Not Detected (NotDetected); Coronovirus HKU1,PCR Not Detected (NotDetected); Human Metapneumovirus Not Detected (NotDetected); Influenza A, PCR Not Detected (NotDetected); Influenza AH1, 2009 Not Detected (NotDetected); Influenza AH1, PCR Not Detected (NotDetected); Influenza AH3,PCR Not Detected (NotDetected); Influenza B, PCR Not Detected (NotDetected); Mycoplasma Pneumoniae, PCR Not Detected (NotDected); Parainfluenza 1, PCR Not Detected (NotDetected); Parainfluenza 2, PCR Not Detected (NotDetected); Parainfluenza 3, PCR Not Detected (NotDetected); Parainfluenza 4, PCR Not Detected (NotDetected); Respiratory Syncytial Virus Not Detected (NotDetected); Rhinovirus/Enterovirus Not Detected (NotDetected)
--- NOTE | 2019-09-06 14:14 | PC.NURSE ---
Pt is alert and oriented and able to make needs known. RR even and unlabored at this time. Have medicated per jun.Does have 02 on NC at 0.5 L. Have updated pts poa several times this shift on pts status and plan for care. CB in reach at this time. Ice applied to L hip, dsg is CDI. Have encouraged use of IS.Will continue to mx this shift.
--- NOTE | 2019-09-06 14:36 | PC.NURSE ---
Reassessed 02 sat on RA and pt was 93%. Will cont to mx this shift, currently on RA.
--- NOTE | 2019-09-06 18:20 | HMH.ORTHPN ---
Subjective Date: 09/06/19 Time: 18:00 Principal diagnosis: L hip fracture Interval history: The patient is feeling well this evening, though she has had intermittent nausea and vomited her dinner. She has been out of bed with PT, sat in the bedside chair, and had a BM today. No drainage onto dressings L hip; hip pain is controlled with pain meds. PN: Obj Ex Vital signs: Temp Pulse Resp BP Pulse Ox 98.5 F 92 H 17 117/69 93 L 09/06/19 15:52 09/06/19 15:52 09/06/19 15:52 09/06/19 15:52 09/06/19 15:52 - Constitutional no acute distress - Routine HEENT Exam Head: Present: normocephalic Eye: Present: EOMI ENT: Present: mucous membranes moist - Routine Respiratory Exam Absent: respiratory distress, wheezes - Routine Cardiovascular Exam Present: RRR - Routine Abdominal Exam Present: soft. Absent: distended - Routine Extremities Exam Comments: L hip dressings c/d/i, no strikethrough +DF/PF/EHL LLE SILT distally LLE in all distributions palpable pedal pulses LLE, foot warm with BCR L calf soft, non-tender - Routine Skin Exam Present: warm - Routine Neurological Exam Present: alert, oriented X3 - Urinary Catheter Management Fagan Cath placed during this visit: no Progress Note: A&P (1) Intertrochanteric fracture of left femur Status: Acute Current Visit: Yes (2) Osteoporosis Status: Chronic Current Visit: No (3) Parkinsons disease Status: Chronic Current Visit: No (4) Acute blood loss as cause of postoperative anemia Status: Acute Current Visit: Yes Assessment and Plan for All Diagnoses:: 69yo F POD 2 s/p IMN L femur for IT fx -- WBAT LLE, out of bed with assist/walker -- will change dressing L hip tomorrow -- continue PT/OT -- ice pack L hip as needed -- pain control: oral norco, IV morphine PRN -- DVT prophy: lovenox 40mg SQ daily -- SCD RLE -- encourage IS 10x/hr while awake -- dispo planning: anticipate d/c to SNF tomorrow
--- NOTE | 2019-09-07 04:27 | PC.NURSE ---
Pt is A&Ox3 and has repositioned self or assisted to turn several times this shift. Pt has c/o pain 2x, medicated per MAR with good pain relief on reassessment. Lungs CTA and pt has maintained room air t/o this shift with sats 93-96%. Pt has utilized IS very well and met goal of 1500ml several times. Pt rested well for several hours although awakens to alert staff of soiled briefs 2x. ABD is soft, non-tender with active BS. Pt's last BM was 09/06/19, pt denies any diarrhea/vomiting/nausea this shift. 2 dressing noted to left hip that are C/D/I. Call light within reach, VSS, will continue to monitor pt.
[2019-09-07 05:00] VITALS: BMI 23.6
[2019-09-07 06:42] LABS: Hemoglobin 9.3 g/dL (12.2-16.2)
[2019-09-07 07:50] VITALS: BP 119/72; PULSE 96; RESP 17; TEMP 36.9; O2SAT 96
--- NOTE | 2019-09-07 08:12 | HMH.ACPN2 ---
<Twila Muhammad - Last Filed: 09/07/19 08:12> Internal Medicine - PN: Subj *Date: 09/07/19 *Time: 08:12 Interval history: Patient states she is feeling well this morning. She does complain that her hip is sore. She states she was able to sit up yesterday in a chair without significant pain. She was seen by physical therapy and they feel she will need long-term care for rehab. She states she slept well last night and ate a small amount of her breakfast this morning. Exam Vital signs and Labs for Last 24 Hours: Temp Pulse Resp BP Pulse Ox 98.4 F 96 H 17 119/72 96 09/07/19 07:50 09/07/19 07:50 09/07/19 07:50 09/07/19 07:50 09/07/19 07:50 Laboratory Results - last 24 hr 09/06/19 10:10: Chlamy pneumoniae PCR Not detected, Adenovirus (PCR) Not detected, B. pertussis DNA (PCR) Not detected, Coronavirus OC43 (PCR) Not detected, Coronavirus HKU1 (PCR) Not detected, Coronavirus 229E (PCR) Not detected, COVID-19 PCR Not detected, Coronavirus NL63 (PCR) Not detected, Human Metapneumovir PCR Not detected, Influenza A (H1) PCR Not detected, Influ A (H1N1/09) PCR Not detected, Influenza A (H3) PCR Not detected, Influenza Type A (PCR) Not detected, Influenza Type B (PCR) Not detected, M. pneumoniae (PCR) Not detected, Parainfluenza 1 (PCR) Not detected, Parainfluenza 2 (PCR) Not detected, Parainfluenza 3 (PCR) Not detected, Parainfluenza 4 (PCR) Not detected, RSV (PCR) Not detected, Entero/Rhino (PCR) Not detected 09/07/19 05:35: Hgb 9.3 L, Hct 30.0 L I & O for Last 24 hours: Intake & Output 09/04/19 09/05/19 09/06/19 09/07/19 11:59 11:59 11:59 11:59 Intake Total 1420 / 1420 4074 / 4074 2818 / 2818 2478 / 2478 Output Total 625 / 625 1000 / 1000 1501 / 1501 Balance 795 / 795 3074 / 3074 1317 / 1317 2478 / 2478 Weight 113 lb 6 oz 122 lb 4 oz 120 lb 119 lb 15.997 oz Microbiology Reports for the Last 24 Hours: Microbiology 09/03/19 12:25 Urine,Catheterized Urine Culture - Preliminary - Constitutional no acute distress - *Routine Respiratory Exam Present: CTA bilaterally - *Routine Cardiovascular Exam Present: RRR - *Routine Abdominal Exam Present: soft, normoactive bowel sounds. Absent: tenderness - *Routine Extremities Exam Absent: cyanosis, clubbing, edema - *Routine Skin Exam Comments: left hip dressing clean and dry Assessment and Plan (1) Intertrochanteric fracture of left femur Current visit: Yes Status: Acute Category: Medical Code(s): S72.142A - Displaced intertrochanteric fracture of left femur, initial encounter for closed fracture (2) Osteoporosis Current visit: No Status: Chronic Category: Medical Code(s): M81.0 - Age-related osteoporosis without current pathological fracture (3) Parkinsons disease Current visit: No Status: Chronic Category: Medical Code(s): G20 - Parkinson's disease (4) Acute blood loss as cause of postoperative anemia Current visit: Yes Status: Acute Category: Medical Code(s): D62 - Acute posthemorrhagic anemia - Assessment and plan all Dx Assessment and Plan for all problems:: The plan is for patient to go to a long-term facility for rehab. Her H&H is stable today. <Mark Crum - Last Filed: 09/07/19 09:42> Internal Medicine - PN: Subj *Date: 09/07/19 *Time: 09:40 Exam Vital signs and Labs for Last 24 Hours: Temp Pulse Resp BP Pulse Ox 98.4 F 96 H 17 119/72 96 09/07/19 07:50 09/07/19 07:50 09/07/19 07:50 09/07/19 07:50 09/07/19 07:50 Laboratory Results - last 24 hr 09/06/19 10:10: Chlamy pneumoniae PCR Not detected, Adenovirus (PCR) Not detected, B. pertussis DNA (PCR) Not detected, Coronavirus OC43 (PCR) Not detected, Coronavirus HKU1 (PCR) Not detected, Coronavirus 229E (PCR) Not detected, COVID-19 PCR Not detected, Coronavirus NL63 (PCR) Not detected, Human Metapneumovir PCR Not detected, Influenza A (H1) PCR Not detected, Influ A (H1N1/09) PCR Not detected,
--- NOTE | 2019-09-07 09:48 | SW/DCPLANNER ---
This patient will discharge to [facility] level of care today per [facility] with [facility]. Patient and patients family is agreeable with this plan. Patients family has offered to transport this patient today.
--- NOTE | 2019-09-07 10:34 | PC.NURSE ---
report given to Zoifa ZUNIGA at [facility]
--- NOTE | 2019-09-07 10:42 | HMH.ORTHPN ---
Subjective Date: 09/07/19 Time: 10:00 Principal diagnosis: L hip fracture Interval history: The patient is doing well this morning, accepted at [facility] and ready for discharge this morning. PN: Obj Ex Vital signs: Temp Pulse Resp BP Pulse Ox 98.4 F 96 H 17 119/72 96 09/07/19 07:50 09/07/19 07:50 09/07/19 07:50 09/07/19 07:50 09/07/19 07:50 - Constitutional no acute distress - Routine HEENT Exam Head: Present: normocephalic Eye: Present: EOMI ENT: Present: mucous membranes moist - Routine Respiratory Exam Absent: respiratory distress, wheezes - Routine Cardiovascular Exam Present: RRR - Routine Abdominal Exam Present: soft. Absent: distended - Routine Extremities Exam Comments: L hip dressings c/d/i, no strikethrough dressing removed, incisions c/d/i w/o erythema, ecchymosis or drainage +DF/PF/EHL LLE SILT distally LLE in all distributions palpable pedal pulses LLE, foot warm with BCR L calf soft, non-tender - Routine Skin Exam Present: warm - Routine Neurological Exam Present: alert, oriented X3, moving all extremities, normal tone, hearing grossly intact. Absent: sensory deficit, motor deficit, altered mental status - Urinary Catheter Management Fagan Cath placed during this visit: no Progress Note: A&P (1) Intertrochanteric fracture of left femur Status: Acute Current Visit: Yes (2) Osteoporosis Status: Chronic Current Visit: No (3) Parkinsons disease Status: Chronic Current Visit: No (4) Acute blood loss as cause of postoperative anemia Status: Acute Current Visit: Yes Assessment and Plan for All Diagnoses:: 69yo F POD 3 s/p IMN L femur for IT fx -- WBAT LLE, out of bed with assist/walker -- continue PT/OT at SNF -- ice pack L hip as needed -- continue pain medication PRN -- DVT prophy per primary -- SCD RLE -- encourage IS 10x/hr while awake -- dispo planning: d/c to SNF today, follow-up with me in clinic 09/16/19 at 2:45pm
--- NOTE | 2019-09-07 10:44 | HMH.DCSUM ---
General - General Admission date:: 09/03/19 Discharge date: 09/07/19 HPI HPI: 69 year old female with a history of Parkinson's disease and osteoporosis presented to [facility] on the day of admission complaining of left hip pain after falling at home. Patient states she lost her balance when trying to get up ad fell on her left side. SHe had immediate pain and was unable to get up. She was worked up in the emergency room and found to have an intertrochanteric fracture of the left hip and admitted for orthopedic consultation. Hospital Course Hospital Course: Patient was admitted and seen in consultation by Dr. Luna. After discussion with patient and her daughter, decision was made to proceed with surgery using an intramedullary nail to stabilize the fracture. She was taken to the OR on 09/04/2019 and underwent intramedullary nailing of the fracture without incident. She did well with her surgery. On postop day 1 her hemoglobin dropped to 6.9. She received 2 units of packed red cells with posttransfusion H&H increasing to 9.3. Her urinalysis had 20-50 white cells and she was empirically started on Macrobid; however her culture eventually returned showing no growth. She was evaluated by physical therapy postoperatively. Considering her advanced Parkinson's disease with generalized weakness and balance deficits, it was felt this would likely slow her progress with rehabbing her hip fracture and that she would best be served by placement in a skilled care facility for more intensive therapy. [facility] was found to have a bed available and agreed to accept the patient for admission. She is being discharged to [facility] today. Her hemoglobin has remained stable at 9.3.. She will be continued on her maintenance medications from home. She will receive Xarelto 10 mg daily for 35 days for DVT prophylaxis. She will be followed at [facility] by Dr. Crum and she will follow-up with Dr. Luna as scheduled. Objective Vital signs: Temp Pulse Resp BP Pulse Ox 98.4 F 96 H 17 119/72 96 09/07/19 07:50 09/07/19 07:50 09/07/19 07:50 09/07/19 07:50 09/07/19 07:50 Narrative: On the day of discharge, she is sitting up in the chair. She is alert and oriented. Lungs are clear to auscultation. Heart is regular with no murmurs. Abdomen is soft and nondistended with no tenderness. Extremities show no edema. Surgical dressing is clean, dry, and intact. Results Labs on day of discharge: Labs from last 24 hours 09/07/19 09/06/19 05:35 10:10 Hgb 9.3 L Hct 30.0 L Chlamy pneumoniae PCR Not detected Adenovirus (PCR) Not detected B. pertussis DNA (PCR) Not detected Coronavirus OC43 (PCR) Not detected Coronavirus HKU1 (PCR) Not detected Coronavirus 229E (PCR) Not detected COVID-19 PCR Not detected Coronavirus NL63 (PCR) Not detected Human Metapneumovir PCR Not detected Influenza A (H1) PCR Not detected Influ A (H1N1/09) PCR Not detected Influenza A (H3) PCR Not detected Influenza Type A (PCR) Not detected Influenza Type B (PCR) Not detected M. pneumoniae (PCR) Not detected Parainfluenza 1 (PCR) Not detected Parainfluenza 2 (PCR) Not detected Parainfluenza 3 (PCR) Not detected Parainfluenza 4 (PCR) Not detected RSV (PCR) Not detected Entero/Rhino (PCR) Not detected Preliminary micro results at discharge 09/03/19 12:25 Urine Culture - Preliminary Urine,Catheterized DS: Diagnosis - Discharge Diagnosis (1) Intertrochanteric fracture of left femur Status: Acute (2) Osteoporosis Status: Chronic (3) Parkinsons disease Status: Chronic (4) Acute blood loss as cause of postoperative anemia Status: Acute Discharge Plan - Patient Discharge Instructions ACTIVITY: Other (WBAT LLE) DIET: continue same diet Additional Instructions: WBAT LLE continue PT/OT at SNF change dressing L hip once daily will remove julia at
--- NOTE | 2019-09-07 10:52 | PC.NURSE ---
pt meds and rings given to pt daughter, jose linda.
== END 2019-09-07 11:20 | DRG 481 ==
LOC: ER 14:06 → 2ND 14:31
PROVIDERS: Family Medicine; Nurse Practitioner Family; Orthopaedic Surgery; Admitting Provider Family Medicine; Emergency Provider Family Medicine; PCP Family Medicine; Visit Provider Family Medicine
PROC: 0QH736Z Insertion of Intramedullary Internal Fixation Device into Left Upper Femur, Percutaneous Approach (ICD-10-PCS; principal; 2019-09-04 09:00)
DX: S72.142A Displaced intertrochanteric fracture of left femur, initial encounter for closed fracture (principal); D62 Acute posthemorrhagic anemia; G20 Parkinson's disease; M81.0 Age-related osteoporosis without current pathological fracture; Z87.891 Personal history of nicotine dependence; Z88.2 Allergy status to sulfonamides; Z88.1 Allergy status to other antibiotic agents; Z79.899 Other long term (current) drug therapy; W01.0XXA Fall on same level from slipping, tripping and stumbling without subsequent striking against object, initial encounter; Y92.010 Kitchen of single-family (private) house as the place of occurrence of the external cause
CPT/HCPCS: 27245; 36415; 73502; 73700; 76000; 80053; 81001; 85007; 85014; 85018; 85025; 85048; 85049; 86850; 87086; 87088; 87186; 87581; 87633; 87798; 93005; 96365; 96375; 96376; 97110; 97116; 97161; 97166; 97530; 97535; 99285; C1776; J2405; P9016

== ENCOUNTER → 2019-09-20 09:39 | Outpatient (CLI) | payer MEDICARE, SELFPAY ==
--- NOTE | 2019-09-20 09:46 | XR_ITS ---
PROCEDURE: XR HIP LT 2-3V W/PELVIS CLINICAL INDICATION: s/p lt hip FX Fu COMPARISON: XR HIP LT 2-3V W/PELVIS from 09/04/2019 FINDINGS: The gamma nail remains in good alignment within the femoral neck and head. The femoral head is viable. The intramedullary teresa is stable and unchanged in appearance from previous study. Metallic surgical sutures are again seen in the skin line. The large fracture fragment of the lesser trochanter is again noted basically unchanged in position from the previous study. IMPRESSION: Stable ORIF intertrochanteric fracture left hip Dictated by: Dr. Tom Parra MD 09/20/2019 11:[address] Tom Parra MD in [facility] 09/20/2019 11:04
== END ==
PROVIDERS: PCP Family Medicine; Visit Provider Orthopaedic Surgery
DX: S72.002A Fracture of unspecified part of neck of left femur, initial encounter for closed fracture (principal); S72.142A Displaced intertrochanteric fracture of left femur, initial encounter for closed fracture
CPT/HCPCS: 73502

== ENCOUNTER → 2019-10-06 10:03 | Outpatient (CLI) | payer MEDICARE, SELFPAY ==
--- NOTE | 2019-10-06 10:13 | XR_ITS ---
PROCEDURE: XR HIP LT 2-3V W/PELVIS CLINICAL INDICATION: s/p hip fx fu Follow-up surgery COMPARISON: XR HIP LT 2-3V W/PELVIS from 09/20/2019 FINDINGS: Status post ORIF left hip with gamma nail and intramedullary teresa in place with good alignment of the inter trochanteric fracture. There is prominent heterotopic ossification along the femoral neck medially. There is also heterotopic ossification along the femoral neck superiorly. Mild osteoarthritic changes are present in the hips. Developing callus formation noted at fracture site. Lesser trochanter is displaced medially and anteriorly IMPRESSION: Good alignment healing left hip fracture with heterotopic ossification Dictated by: Lamont Vincent MD 10/06/2019 13:58 Electronically signed by Lamont Vincent MD in [facility] 10/06/2019 13:58
== END ==
PROVIDERS: PCP Family Medicine; Visit Provider Orthopaedic Surgery
DX: S72.142A Displaced intertrochanteric fracture of left femur, initial encounter for closed fracture (principal)
CPT/HCPCS: 73502

== ENCOUNTER → 2019-10-27 10:16 | Outpatient (CLI) | payer MEDICARE, SELFPAY ==
--- NOTE | 2019-10-27 10:18 | XR_ITS ---
PROCEDURE: XR HIP LT 2-3V W/PELVIS CLINICAL INDICATION: s/p hip fx Follow-up fracture/ORIF COMPARISON: XR HIP LT 2-3V W/PELVIS from 10/06/2019 FINDINGS: Left-sided gamma nail with short intramedullary teresa once again noted with good alignment and prominent heterotopic ossification along the inferior aspect of the femoral neck. IMPRESSION: No change good alignment status post left hip ORIF Dictated by: Lamont Vincent MD 10/27/2019 15:31 Electronically signed by Lamont Vincent MD in [place] 10/27/2019 15:32
--- NOTE | 2019-10-27 11:59 | XR_ITS ---
PROCEDURE: XR TIBIA FIBULA LT 2V CLINICAL INDICATION: [place] pain COMPARISON: No exams were available for comparison FINDINGS: No fracture or dislocation. No lytic or blastic change. There is normal mineralization. The joint spaces are well-preserved. No significant degenerative/arthritic changes. No erosive changes evident. Other findings:None. IMPRESSION: No acute findings. Dictated by: Lamont Vincent MD 10/27/2019 17:58 Electronically signed by Lamont Vincent MD in [place] 10/27/2019 17:58
== END ==
PROVIDERS: PCP Family Medicine; Visit Provider Orthopaedic Surgery
DX: S72.002A Fracture of unspecified part of neck of left femur, initial encounter for closed fracture (principal); S72.142A Displaced intertrochanteric fracture of left femur, initial encounter for closed fracture; M79.662 Pain in left lower leg
CPT/HCPCS: 73502; 73590

== ENCOUNTER → 2019-11-19 16:44 | Outpatient (CLI) | payer MEDICARE, SELFPAY ==
[2019-11-19 16:57] LABS: Microscopic, Urine URINE MICROSCOPIC (MICROSCOPIC)
[2019-11-19 16:59] LABS: Appearance,Urine CLOUDY (Clear); Bilirubin,Urine Negative (Negative); Blood, Urine 2+ (Negative); Color,Urine YELLOW (Yellow); Glucose,Urine (UA) Negative (Negative); Ketones,Urine Negative (Negative); Leukocyte Esterase,Urine 2+ (Negative); Nitrate,Urine POSITIVE (Negative); Protein,Urine 2+ (Negative); Specific Gravity, Urine >= 1.030 (1.005-1.030); Urobilinogen,Urine 0.2 EU/dl (0.2)
[2019-11-19 17:25] LABS: Amorphous Sediment,Urine 2+ /lpf; Bacteria,Urine 3+ /lpf; WBC,Urine TNTC #/hpf (0-3)
== END ==
PROVIDERS: Visit Provider Family Medicine
DX: N39.0 Urinary tract infection, site not specified (principal)
CPT/HCPCS: 81001; 87086; 87088; 87186

== ENCOUNTER → 2019-11-24 10:40 | Outpatient (CLI) | payer MEDICARE, SELFPAY ==
--- NOTE | 2019-11-24 10:47 | XR_ITS ---
PROCEDURE: XR HIP LT 2-3V W/PELVIS CLINICAL INDICATION: Left hip FX FU COMPARISON: XR HIP LT 2-3V W/PELVIS from 10/27/2019 FINDINGS: Again demonstrated left-sided Gamma nail with an intramedullary teresa in the treatment of left old intertrochanteric fracture. Prominent heterotopic ossification again seen along the inferior aspect of the left femoral neck. There is mild/moderate bilateral hip osteoarthrosis. Moderately large amount of retained fecal debris is seen in the rectosigmoid. IMPRESSION: Left hip ORIF in good alignment, unchanged. Dictated by: Arlette Montanez 11/24/2019 18:17 Electronically signed by Arlette Montanez in [place] 11/24/2019 18:17
== END ==
PROVIDERS: PCP Family Medicine; Visit Provider Orthopaedic Surgery
DX: S72.142A Displaced intertrochanteric fracture of left femur, initial encounter for closed fracture (principal)
CPT/HCPCS: 73502

== ENCOUNTER → 2019-12-29 10:21 | Outpatient (CLI) | payer MEDICARE, SELFPAY ==
--- NOTE | 2019-12-29 10:25 | XR_ITS ---
PROCEDURE: XR HIP LT 2-3V W/PELVIS CLINICAL INDICATION: s/p IMN L femur sx 09/04/2019 Follow-up fracture COMPARISON: CR XR HIP LT 2-3V W/PELVIS from 11/24/2019 FINDINGS: Gamma nail with medium size intramedullary teresa present. Prominent bony hypertrophy is present at the lesser trochanter/prominent heterotopic ossification. Small amount of heterotopic ossification noted along the greater trochanter. There is good alignment. There appears to be an old fracture of the pubic rami on the left. IMPRESSION: Good alignment status post ORIF left hip with prominent heterotopic ossification along the lesser trochanter Dictated by: Lamont Vincent MD 12/29/2019 16:40 Lamont Vincent MD in [place] 12/29/2019 16:40
== END ==
PROVIDERS: PCP Family Medicine; Visit Provider Orthopaedic Surgery
DX: S72.142A Displaced intertrochanteric fracture of left femur, initial encounter for closed fracture (principal); Z09 Encounter for follow-up examination after completed treatment for conditions other than malignant neoplasm
CPT/HCPCS: 73502

== ENCOUNTER → 2020-03-01 09:16 | Outpatient (CLI) | payer MEDICARE, SELFPAY ==
--- NOTE | 2020-03-01 09:22 | XR_ITS ---
PROCEDURE: XR HIP LT 2-3V W/PELVIS CLINICAL INDICATION: LT hip F/U COMPARISON: No exams were available for comparison FINDINGS: Status post ORIF left hip with decompression screw and short intramedullary teresa. There is heterotopic ossification along the lesser trochanter. Old fractures of the superior and inferior pubic ramus on the left also noted. There is good alignment. IMPRESSION: No change, good alignment status post ORIF left hip with prominent heterotopic ossification along the lesser trochanter Dictated by: Lamont Vincent MD 03/01/2020 09:52 Lamont Vincent MD in [place] 03/01/2020 09:52
== END ==
PROVIDERS: PCP Family Medicine; Visit Provider Orthopaedic Surgery
DX: S72.002A Fracture of unspecified part of neck of left femur, initial encounter for closed fracture (principal); S72.142A Displaced intertrochanteric fracture of left femur, initial encounter for closed fracture
CPT/HCPCS: 73502

== ENCOUNTER → 2020-06-30 14:33 | Outpatient (CLI) | payer MEDICARE, SELFPAY ==
[2020-06-30 14:44] LABS: Microscopic, Urine URINE MICROSCOPIC (MICROSCOPIC)
[2020-06-30 14:58] LABS: Appearance,Urine CLEAR (Clear); Bilirubin,Urine Negative (Negative); Blood, Urine TRACE-L (Negative); Color,Urine YELLOW (Yellow); Glucose,Urine (UA) Negative (Negative); Ketones,Urine TRACE (Negative); Leukocyte Esterase,Urine 1+ (Negative); Nitrate,Urine Negative (Negative); PH,Urine 5.5 (5.0-8.5); Protein,Urine 2+ (Negative); Specific Gravity, Urine >= 1.030 (1.005-1.030); Urobilinogen,Urine 0.2 EU/dl (0.2)
[2020-06-30 15:12] LABS: Amorphous Sediment,Urine 2+ /lpf; RBC,Urine Occasional #/hpf (0-3); Squamous Epithelial Cell,Urine Occasional #/hpf (0-5); WBC,Urine TNTC #/hpf (0-3)
== END ==
PROVIDERS: PCP Family Medicine; Visit Provider Family Medicine
DX: N39.0 Urinary tract infection, site not specified (principal)
CPT/HCPCS: 81001; 87086

== ENCOUNTER → 2023-01-27 21:14 | Outpatient (CLI) | payer MEDICARE, SELFPAY | PROVIDERS: PCP Internal Medicine Adolescent Medicine; Visit Provider Internal Medicine Adolescent Medicine | DX: R19.7 Diarrhea, unspecified (principal); Z86.19 Personal history of other infectious and parasitic diseases | CPT/HCPCS: 87045; 87493 ==